=== PATIENT | female | born 1990 | race Caucasian/White ===

== ENCOUNTER → 2020-05-18 12:56 | Outpatient (BNVA) | payer OTHER, SELFPAY | PROVIDERS: PCP Internal Medicine; Visit Provider Advanced Practice Midwife | DX: Z34.01 Encounter for supervision of normal first pregnancy, first trimester (principal); Z3A.08 8 weeks gestation of pregnancy | CPT/HCPCS: 99211 ==

== ENCOUNTER 2020-05-20 11:10 | Outpatient (REF) | payer OTHER, SELFPAY | END 2020-05-20 11:11 | disposition home or self-care (01) | LOC: HO.LAB 11:10 | PROVIDERS: Visit Provider Obstetrics & Gynecology | DX: R82.90 Unspecified abnormal findings in urine (principal) | CPT/HCPCS: 99212 ==

== ENCOUNTER → 2020-06-03 14:19 | Outpatient (BNVA) | payer OTHER, SELFPAY | DX: Z76.89 Persons encountering health services in other specified circumstances (principal) ==

== ENCOUNTER 2020-06-10 13:24 | Outpatient (REF) | payer OTHER, SELFPAY ==
[2020-06-10 14:12] LABS: MANUAL DIFF FLAG NO
[2020-06-10 14:24] LABS: Basophils Percent Auto 0.4 % (0-2); Eosinophils Absolute Auto 0.1 X10*3/uL (0.0-0.4); Eosinophils Percent Auto 0.9 % (0-4); Hematocrit 30.8 % (37-47); Hemoglobin 10.4 g/dl (12.0-16.0); Imm Gran Abs Auto 0.03 X10*3/uL (0.00-0.03); Imm Gran Pct Auto 0.4 % (0.0-0.4); Lymphocytes Absolute Auto 1.3 X10*3/uL (1.2-4.9); Lymphocytes Percent Auto 16.7 % (20-40); Mean Corpuscular HGB Conc 33.8 g/dl (31.0-35.0); Mean Corpuscular Hemoglobin 30.3 pg (27.0-33.0); Mean Corpuscular Volume 89.8 fL (80-98); Mean Platelet Volume 10.3 fL (9.4-12.3); Monocytes Absolute Auto 0.4 X10*3/uL (0.1-1.2); Monocytes Percent Auto 4.5 % (2-11); Neutrophils Absolute Auto 6.2 X10*3/uL (2.0-8.3); Neutrophils Percent Auto 77.1 % (45-73); Platelet Count 232 X10*3/uL (160-400); Red Blood Count 3.43 X10*6/uL (4.20-5.50); Red Cell Distribution Width 11.9 % (11.0-16.0)
[2020-06-10 15:15] LABS: Syphilis Screen Nonreactive (Nonreactive)
[2020-06-10 15:34] LABS: Amphetamine Screen Urine Not Detected (Not Detect); Barbiturates, Urine Not Detected (Not Detect); Benzodiazepines Screen Urine Not Detected (Not Detect); Cannabinoid Screen Urine Not Detected (Not Detect); Cocaine Screen Urine Not Detected (Not Detect); Opiate Screen Urine Not Detected (Not Detect); Phencyclidine Screen Urine Not Detected (Not Detect)
[2020-06-11 05:07] LABS: HIV AB/AG Nonreactive (Nonreactive); HIV Num 1 0.09 S/CO (0.00-0.99); ~Hepatitis C Antibody Nonreactive (Nonreactive)
[2020-06-11 05:11] LABS: HBsAGNum1 0.17 S/CO (0.00-0.99); Hepatitis B Surface Antigen Negative (Negative)
[2020-06-11 08:56] LABS: Rubella IgG Antibody 1.29 index
[2020-06-12 09:56] LABS: Toxoplasma IgG Antibody <7.20 IU/mL; Toxoplasma IgM Antibody <8.00 AU/mL
== END 2020-06-10 13:25 | disposition home or self-care (01) ==
LOC: HO.LAB 13:24
PROVIDERS: Visit Provider Advanced Practice Midwife
DX: Z34.90 Encounter for supervision of normal pregnancy, unspecified, unspecified trimester (principal); Z3A.00 Weeks of gestation of pregnancy not specified
CPT/HCPCS: 36415; 80307; 84702; 85025; 86762; 86777; 86778; 86780; 86787; 86803; 86850; 86886; 86900; 86901; 87086; 87088; 87186; 87340; 87389

== ENCOUNTER 2020-06-12 10:32 | Outpatient (REF) | payer OTHER, SELFPAY ==
--- NOTE | 2020-06-12 | US_ITS ---
EXAMINATION: OBSTETRICAL ULTRASOUND, First Trimester Twins HISTORY: 29-year-old at 12.0 weeks of gestation Size date discrepancy NT screening COMPARISON: None in this TECHNIQUE: Real time transabdominal imaging with color and M-mode Doppler. FINDINGS: Living dichorionic/diamniotic twin gestation is noted. Twin A: Presenting A viable fetus with CRL of 45 mm c/w 11.3wks is noted. Heart Rate: 153 beats per minute. Normal yolk sac seen. NT was 0.9.mm. NB Present The embryo appears sonographically wnl for this GA. Twin B: None presenting A viable fetus with CRL of 49 mm c/w 11.5wks is noted. Heart Rate: 160 beats per minute. Normal yolk sac seen. NT was 1.0.mm. NB Present The embryo appears sonographically wnl for this GA. Right ovary was not visible. There is a clear cyst in the left ovary 5.3 x 3.3 x 3.6 cm GESTATIONAL AGE: 1. Established GA: 12.0 wks 2. GA from [facility]: 11.3 wks ESTIMATED DATE OF DELIVERY: 1. Established BIB: 12/25/2020 2. BIB from [facility]: 12/27/2020 US/US OB 1T nuc measure add IMPRESSION: 1. Living dichorionic diamniotic twins. Two separate placentas and thick membranes the twins are noted. 2. Both embryos measure appropriate for GA 3. Normal nuchal translucency 4. Benign left ovarian cyst MFM Consultation: I reviewed the ultrasound findings along with significance of NT measurement. The NT of less than 3mm is generally reassuring. However, the sensitivity for T21 detection is only 60%. I reviewed the availability of serum aneuploidy screening which includes cell-free DNA and placental protein based tests. I discussed the sensitivity, false-positive rate, and other limitations associated with each test. I also reviewed the availability of invasive diagnostic tests that are associated small but definite risk of miscarriage. We also reviewed the differences between screening tests and diagnostic tests. After our discussion, she opted for the First trimester screening that is based on cell-free DNA or non-invasive testing (NIPT). I informed her of the limitations N IPT in multiple gestations. We discussed various obstetrical complications associated with twin gestation. These include increased risk of delivery, preeclampsia, gestational diabetes, and IUGR. She will be monitored with monthly ultrasound evaluation beginning at 18 weeks until approximately 34 weeks. After that, weekly testing is recommended until delivery. I informed her that the baseline incidence of congenital abnormalities and mental retardation in the general population is approximately 3-5%. Not all these conditions are diagnosable in utero. Follow up at 18 weeks for survey has been scheduled. Thank you very much for this referral. Majority of this visit was spent reviewing her care and counselling her in face to face time: Time spent 30 min.
== END 2020-06-12 10:33 | disposition home or self-care (01) ==
LOC: HO.US 10:32
PROVIDERS: Visit Provider Advanced Practice Midwife
DX: Z34.90 Encounter for supervision of normal pregnancy, unspecified, unspecified trimester (principal); Z36.82 Encounter for antenatal screening for nuchal translucency
CPT/HCPCS: 76813; 76814

== ENCOUNTER 2020-06-15 14:58 | Outpatient (REF) | payer OTHER, SELFPAY ==
[2020-06-16 15:04] LABS: CT PCR NOT DETECTED (Not Detect.)
[2020-06-16 15:05] LABS: NG PCR NOT DETECTED (Not Detect.)
[2020-06-17 09:43] LABS: BV Int Neg Control Negative (Negative); BV Int Pos Control Positive (Positive)
[2020-06-20 03:11] LABS: HPV mRNA E6/E7 rflx Not Detected (Not Detected)
== END 2020-06-15 14:59 | disposition home or self-care (01) ==
LOC: HO.LAB 14:58
PROVIDERS: Obstetrics & Gynecology; Visit Provider Advanced Practice Midwife
DX: O30.009 Twin pregnancy, unspecified number of placenta and unspecified number of amniotic sacs, unspecified trimester (principal); O30.041 Twin pregnancy, dichorionic/diamniotic, first trimester; O99.019 Anemia complicating pregnancy, unspecified trimester
CPT/HCPCS: 87480; 87491; 87510; 87591; 87624; 87625; 87660; 88142

== ENCOUNTER → 2020-07-13 14:26 | Outpatient (BNVA) | payer OTHER, SELFPAY | PROVIDERS: Visit Provider Obstetrics & Gynecology | DX: O30.042 Twin pregnancy, dichorionic/diamniotic, second trimester (principal); O23.42 Unspecified infection of urinary tract in pregnancy, second trimester; Z3A.16 16 weeks gestation of pregnancy | CPT/HCPCS: 99212 ==

== ENCOUNTER 2020-08-14 15:27 | Outpatient (REF) | payer OTHER, SELFPAY ==
--- NOTE | 2020-08-14 | US_ITS ---
EXAMINATION: OBSTETRICAL ULTRASOUND - SECOND TRIMESTER, TWINS HISTORY: 29-year-old at the 21.0 weeks of gestation Dichorionic diamniotic twins Suspected anomaly COMPARISON: 06/12/2020 TECHNIQUE: Real time transabdominal imaging with color and M-mode Doppler. TWIN A: PRESENTATION: Vertex PLACENTA LOCATION: Posterior without previa AMNIOTIC FLUID: Normal Thick membranes the twins are noted consistent with him dichorionic diamniotic placentation. MEASUREMENTS: 1. Biparietal Diameter: 5.1 cm; 21.4 wks 2. Occipital Frontal Diameter: 6.4 cm 3. Head Circumference: 18.2 cm; 20.4 wks 4. Abdominal Circumference: 15.8 cm; 21.0 wks 5. Femur Length: 3.21 cm; 20.0 wks 6. Humerus Length: 2.8 cm; 19.1 wks 7. Tibia Length: 2.8 cm; 20.1 wks 8. Lateral ventricle: 0.73 cm 9. Cerebellum: 2.12 cm; 21.3 wks 10. Cisterna Magna: 0.41 cm 11. Nuchal Fold: 4.9 mm 12. Heart Rate: 143 beats per minute GESTATIONAL AGE: Established GA: 21.0 wks GA from [facility]: 20.6 wks WEIGHT: EFW: 362 grams (0 lbs 13 oz).-- 24 %. ANATOMY: 1. Cranium: Normal 2. BPD Level: Normal 3. Cerebral ventricles: Normal 4. face: Suboptimal due to position 5. Cardiac anatomy: Limited due to position 6. Heart chambers: Suboptimal 7. Diaphragm: Normal 8. Abdominal wall: Normal 9. Spine: Normal 10. Stomach: Normal 11. 3 vessel cord: Normal 12. Upper extremity: Suboptimal 13. Lower extremity: Normal 14. Right Kidney: Normal 15. Left Kidney: Normal 16. Bladder: Normal 17. Genitalia: Female, patient aware TWIN B: PRESENTATION: Transverse, nonpresenting PLACENTA LOCATION: Anterior without previa AMNIOTIC FLUID: Normal MEASUREMENTS: 1. Biparietal Diameter: 4.9 cm; 20.6 wks 2. Occipital Frontal Diameter: 6.5 cm 3. Head Circumference: 18.3 cm; 20 point wks 4. Abdominal Circumference: 16.7 cm; 21.6 wks 5. Femur Length: 3.3 cm; 20.2 wks 6. Humerus Length: 3.1 cm; 20.2 wks 7. Tibia Length: 2.81 cm; 20.2 wks 8. Ulna Length: 2.95 cm; 21.0 wks 9. Lateral ventricle: 0.8 cm 10. Cerebellum: 2.15 cm; 21.4 wks 11. Cisterna Magna: 0.53 cm 12. Nuchal Fold: 3.6 mm 13. Heart Rate: 156 beats per minute GESTATIONAL AGE: Established GA: 21.0 wks GA from [facility]: 21.0 wks WEIGHT: EFW: 392 grams (0 lbs 14 oz).-- 45 %. ANATOMY: 1. Cranium: Normal 2. BPD Level: Normal 3. Cerebral ventricles: Normal 4. face: Normal 5. Cardiac anatomy: Limited cardiac anatomy due to position 6. Heart chambers: Normal 7. Diaphragm: Normal 8. Abdominal wall: Normal 9. Spine: Suboptimal due to position 10. Stomach: Normal 11. 3 vessel cord: Normal 12. Upper extremity: Limited 13. Lower extremity: Limited 14. Right Kidney: Normal 15. Left Kidney: Normal 16. Bladder: Normal 17. Genitalia: Male, patient aware ESTIMATED DATE OF DELIVERY: 1. Established BIB: 12/25/2020 2. BIB from [facility]: 12/26/2020 Cervix: 4.0 cm (T/A) US/US OB /maternal detail IMPRESSION: 1. Active, dichorionic diamniotic twins 2. Size equals dates, twins are concordant 3. anatomy was suboptimal due to the position. No abnormalities were seen in visualized anatomy as noted above. 4. Cervix 4.0 cm on transabdominal view We reviewed the findings on today's examination. Twins are appropriately grown and concordant. They both active. Twin A is female and be male. Although anatomic survey could not be completed, no abnormalities were detected. She also had the low risk serum aneuploidy screening. An amniocentesis was offered and declined. We discussed the differences between screening test and diagnostic tests. She is aware that baseline incidence of congenital abnormalities in the general population is approximately 3-5%. Not all these conditions are diagnosable in utero. I reviewed the obstetrical complications associated with twin gestation. These include increased risk of delivery, preeclampsia, gestational diabetes and IUGR. She will be monitored throughout the with growth evaluation as well as testing beginning at approximately 34 weeks of gestation. The cervical length is within normal limits on transabdominal view. She is scheduled to return in 2 weeks for follow-up examination. Thank you very much for this referral. Total time: 30 minutes (6,17,7)
--- NOTE | 2020-08-14 15:31 | US_ITS ---
EXAMINATION: OBSTETRICAL ULTRASOUND - SECOND TRIMESTER, TWINS HISTORY: 29-year-old at the 21.0 weeks of gestation Dichorionic diamniotic twins Suspected anomaly COMPARISON: 06/12/2020 TECHNIQUE: Real time transabdominal imaging with color and M-mode Doppler. TWIN A: PRESENTATION: Vertex PLACENTA LOCATION: Posterior without previa AMNIOTIC FLUID: Normal Thick membranes the twins are noted consistent with him dichorionic diamniotic placentation. MEASUREMENTS: 1. Biparietal Diameter: 5.1 cm; 21.4 wks 2. Occipital Frontal Diameter: 6.4 cm 3. Head Circumference: 18.2 cm; 20.4 wks 4. Abdominal Circumference: 15.8 cm; 21.0 wks 5. Femur Length: 3.21 cm; 20.0 wks 6. Humerus Length: 2.8 cm; 19.1 wks 7. Tibia Length: 2.8 cm; 20.1 wks 8. Lateral ventricle: 0.73 cm 9. Cerebellum: 2.12 cm; 21.3 wks 10. Cisterna Magna: 0.41 cm 11. Nuchal Fold: 4.9 mm 12. Heart Rate: 143 beats per minute GESTATIONAL AGE: Established GA: 21.0 wks GA from [facility]: 20.6 wks WEIGHT: EFW: 362 grams (0 lbs 13 oz).-- 24 %. ANATOMY: 1. Cranium: Normal 2. BPD Level: Normal 3. Cerebral ventricles: Normal 4. face: Suboptimal due to position 5. Cardiac anatomy: Limited due to position 6. Heart chambers: Suboptimal 7. Diaphragm: Normal 8. Abdominal wall: Normal 9. Spine: Normal 10. Stomach: Normal 11. 3 vessel cord: Normal 12. Upper extremity: Suboptimal 13. Lower extremity: Normal 14. Right Kidney: Normal 15. Left Kidney: Normal 16. Bladder: Normal 17. Genitalia: Female, patient aware TWIN B: PRESENTATION: Transverse, nonpresenting PLACENTA LOCATION: Anterior without previa AMNIOTIC FLUID: Normal MEASUREMENTS: 1. Biparietal Diameter: 4.9 cm; 20.6 wks 2. Occipital Frontal Diameter: 6.5 cm 3. Head Circumference: 18.3 cm; 20 point wks 4. Abdominal Circumference: 16.7 cm; 21.6 wks 5. Femur Length: 3.3 cm; 20.2 wks 6. Humerus Length: 3.1 cm; 20.2 wks 7. Tibia Length: 2.81 cm; 20.2 wks 8. Ulna Length: 2.95 cm; 21.0 wks 9. Lateral ventricle: 0.8 cm 10. Cerebellum: 2.15 cm; 21.4 wks 11. Cisterna Magna: 0.53 cm 12. Nuchal Fold: 3.6 mm 13. Heart Rate: 156 beats per minute GESTATIONAL AGE: Established GA: 21.0 wks GA from [facility]: 21.0 wks WEIGHT: EFW: 392 grams (0 lbs 14 oz).-- 45 %. ANATOMY: 1. Cranium: Normal 2. BPD Level: Normal 3. Cerebral ventricles: Normal 4. face: Normal 5. Cardiac anatomy: Limited cardiac anatomy due to position 6. Heart chambers: Normal 7. Diaphragm: Normal 8. Abdominal wall: Normal 9. Spine: Suboptimal due to position 10. Stomach: Normal 11. 3 vessel cord: Normal 12. Upper extremity: Limited 13. Lower extremity: Limited 14. Right Kidney: Normal 15. Left Kidney: Normal 16. Bladder: Normal 17. Genitalia: Male, patient aware ESTIMATED DATE OF DELIVERY: 1. Established BIB: 12/25/2020 2. [facility]: 12/26/2020 Cervix: 4.0 cm (T/A) US/ OB /maternal det add IMPRESSION: 1. Active, dichorionic diamniotic twins 2. Size equals dates, twins are concordant 3. anatomy was suboptimal due to the position. No abnormalities were seen in visualized anatomy as noted above. 4. Cervix 4.0 cm on transabdominal view We reviewed the findings on today's examination. Twins are appropriately grown and concordant. They both active. Twin A is female and be male. Although anatomic survey could not be completed, no abnormalities were detected. She also had the low risk serum aneuploidy screening. An amniocentesis was offered and declined. We discussed the differences between screening test and diagnostic tests. She is aware that baseline incidence of congenital abnormalities in the general population is approximately 3-5%. Not all these conditions are diagnosable in utero. I reviewed the obstetrical complications associated with twin gestation. These include increased risk of delivery, preeclampsia, gestational diabetes and IUGR. She will be monitored throughout the with growth evaluation as well as testing beginning at approximately 34 weeks of gestation. The cervical length is within normal limits on transabdominal view. She is scheduled to return in 2 weeks for follow-up examination. Thank you very much for this referral. Total time: 30 minutes (6,17,7)
== END 2020-08-14 15:28 | disposition home or self-care (01) ==
LOC: HO.US 15:27
PROVIDERS: Visit Provider Obstetrics & Gynecology
DX: Z36.3 Encounter for antenatal screening for malformations (principal)
CPT/HCPCS: 76811; 76812

== ENCOUNTER 2020-08-17 15:50 | Outpatient (REF) | payer OTHER, SELFPAY | END 2020-08-17 15:51 | disposition home or self-care (01) | LOC: HO.LAB 15:50 | PROVIDERS: PCP Internal Medicine; Visit Provider Advanced Practice Midwife | DX: O30.042 Twin pregnancy, dichorionic/diamniotic, second trimester (principal); Z3A.21 21 weeks gestation of pregnancy; Z79.82 Long term (current) use of aspirin | CPT/HCPCS: 81003; 99212 ==

== ENCOUNTER 2020-08-28 13:17 | Outpatient (REF) | payer SELFPAY ==
--- NOTE | ~2020-08-28 | US_ITS ---
EXAMINATION: US OBSTETRICAL (Twin Growth and BPP ) CLINICAL INFORMATION: 29-year-old at 23.0 weeks of gestation Dichorionic diamniotic twins Follow-up anatomy COMPARISON: 08/14/2020 TECHNIQUE: Real time transabdominal imaging with color and M-mode Doppler. TWIN A: PRESENTATION: Breech, presenting, female PLACENTA LOCATION: Posterior without previa AMNIOTIC FLUID: Normal biometry was not repeated as there were 2 weeks ago. ANATOMY: Following views are within normal limits: LVOT, RVOT, ductal and aortic arches, three-vessel view, situs, diaphragm, right hand, left hand, fifth digit, bilateral lower extremities. TWIN B: PRESENTATION: Transverse, fundal, male PLACENTA LOCATION: Anterior, without previa AMNIOTIC FLUID: Normal Biometry done 2 weeks ago was not repeated ANATOMY: Isolated EIF noted in left ventricle. Following views are within normal limits: LVOT, aortic arch, three-vessel, trachea view, situs, spine, right and left hands, fifth digit, bilateral legs. GESTATIONAL AGE: 1. Established GA: 23.0 wks 2. GA from [facility]: N/A wks ESTIMATED DATE OF DELIVERY: 1. Established BIB: 12/25/2020 2. BIB from [facility]: N/A US/ OB f/u add gest IMPRESSION: 1. DICHORIONIC DIAMNIOTIC twins. 2. Normal AFV x 2 3. Isolated EIF in Twin B. Otherwise, no abnormalities were noted in both twins. In combination with earlier exam, today's exam completes survey. MFM Discussion: I reviewed the weak association between echogenic intracardiac focus and Down syndrome. The likelihood ratio is approximately 2. Other than its association with Down syndrome, the clinical significance is unknown. She had the low risk N IPT. In this setting, isolated EIF is considered to be a normal variant. I reviewed the risks and benefits of amniocentesis as well as the availability of micron right analysis on amnio sites. The procedure associated the miscarriage rate is estimated to be 1 and 500. After our discussion, she declined amniocentesis. A follow-up has been scheduled in 2 weeks. Thank you very much for this referral. Majority of the visit was spent reviewing her care. Face to face time: 30 min
[2020-08-28 16:34] LABS: Glucose 1 Hour PP 50gm Dose 149 mg/dL (60-140)
== END 2020-08-28 13:18 | disposition home or self-care (01) ==
LOC: HO.US 13:17
PROVIDERS: Advanced Practice Midwife; Visit Provider Obstetrics & Gynecology
DX: O30.042 Twin pregnancy, dichorionic/diamniotic, second trimester (principal); O23.42 Unspecified infection of urinary tract in pregnancy, second trimester; Z3A.23 23 weeks gestation of pregnancy
CPT/HCPCS: 36415; 76816; 87086; 87088; 87186

== ENCOUNTER → 2020-08-31 14:22 | Outpatient (BNVA) | payer SELFPAY | PROVIDERS: Visit Provider Obstetrics & Gynecology | DX: O30.042 Twin pregnancy, dichorionic/diamniotic, second trimester (principal); N39.0 Urinary tract infection, site not specified | CPT/HCPCS: 99212 ==

== ENCOUNTER 2020-09-11 13:59 | Outpatient (REF) | payer SELFPAY ==
--- NOTE | ~2020-09-11 | US_ITS ---
EXAMINATION: US OBSTETRICAL (Twin Growth and BPP ) CLINICAL INFORMATION: 29-year-old at the 25.0 weeks of gestation Dichorionic diamniotic twins Size date discrepancy COMPARISON: 08/28/2020 TECHNIQUE: Real time transabdominal imaging with color and M-mode Doppler. Transvaginal ultrasound was performed using an endovaginal probe. TWIN A: Female PRESENTATION: Vertex PLACENTA LOCATION: Posterior without previa AMNIOTIC FLUID: Within normal limits MEASUREMENTS: 1. Biparietal Diameter: 6.1 cm; 24.5 wks 2. Head Circumference: 22.5 cm; 24.4 wks 3. Abdominal Circumference: 20.3 cm; 25.0 wks 4. Femur Length: 4.42 cm; 24.4 wks 5. Heart Rate: 144 beats per minute WEIGHT: EFW: 727 grams (1 lbs 10 oz)--28 %. ANATOMY: Lateral ventricles, posterior fossa, four-chamber view of the heart, stomach, kidneys and bladder are within normal limits. GESTATIONAL AGE: 1. Established GA: 25.0 wks 2. GA from [facility]: 24.5 wks TWIN B: Male PRESENTATION: Breech, left PLACENTA LOCATION: Anterior without previa AMNIOTIC FLUID: Normal MEASUREMENTS: 1. Biparietal Diameter: 5.8 cm; 23.5 wks 2. Head Circumference: 22.3 cm; 24.3 wks 3. Abdominal Circumference: 21.4 cm; 26.0 wks 4. Femur Length: 4.1 cm; 23.2 wks 5. Heart Rate: 144 beats per minute WEIGHT: EFW: 725 grams (1 lbs 10 oz)--28 %. ANATOMY: Cerebral lateral ventricle, posterior fossa, four-chamber view of the heart, stomach, urinary bladder and kidneys are within normal limits GESTATIONAL AGE: 1. Established GA: 25.0 wks 2. GA from [facility]: 24.3 wks ESTIMATED DATE OF DELIVERY: 1. Established BIB: 12/25/2020 2. BIB from [facility]: 12/29/2020 CERVIX: 4.6 cm on transvaginal ultrasound US/US OB transvaginal IMPRESSION: 1. Appropriately grown, concordant, DICHORIONIC DIAMNIOTIC twins. 2. Normal AFV x 2 3. Normal cervical length I gave her reassurance. Twins are concordant and have normal amount of amniotic fluid. Her cervical length is within normal limits. She is to have the one hour glucose tolerance test next week. Follow up has been scheduled in 4 weeks. Thank you very much for this referral. Majority of the visit was spent reviewing her care. Face to face time: 20 min
--- NOTE | ~2020-09-11 | US_ITS ---
EXAMINATION: US OBSTETRICAL (Twin Growth and BPP ) CLINICAL INFORMATION: 29-year-old at the 25.0 weeks of gestation Dichorionic diamniotic twins Size date discrepancy COMPARISON: 08/28/2020 TECHNIQUE: Real time transabdominal imaging with color and M-mode Doppler. Transvaginal ultrasound was performed using an endovaginal probe. TWIN A: Female PRESENTATION: Vertex PLACENTA LOCATION: Posterior without previa AMNIOTIC FLUID: Within normal limits MEASUREMENTS: 1. Biparietal Diameter: 6.1 cm; 24.5 wks 2. Head Circumference: 22.5 cm; 24.4 wks 3. Abdominal Circumference: 20.3 cm; 25.0 wks 4. Femur Length: 4.42 cm; 24.4 wks 5. Heart Rate: 144 beats per minute WEIGHT: EFW: 727 grams (1 lbs 10 oz)--28 %. ANATOMY: Lateral ventricles, posterior fossa, four-chamber view of the heart, stomach, kidneys and bladder are within normal limits. GESTATIONAL AGE: 1. Established GA: 25.0 wks 2. GA from [facility]: 24.5 wks TWIN B: Male PRESENTATION: Breech, left PLACENTA LOCATION: Anterior without previa AMNIOTIC FLUID: Normal MEASUREMENTS: 1. Biparietal Diameter: 5.8 cm; 23.5 wks 2. Head Circumference: 22.3 cm; 24.3 wks 3. Abdominal Circumference: 21.4 cm; 26.0 wks 4. Femur Length: 4.1 cm; 23.2 wks 5. Heart Rate: 144 beats per minute WEIGHT: EFW: 725 grams (1 lbs 10 oz)--28 %. ANATOMY: Cerebral lateral ventricle, posterior fossa, four-chamber view of the heart, stomach, urinary bladder and kidneys are within normal limits GESTATIONAL AGE: 1. Established GA: 25.0 wks 2. GA from [facility]: 24.3 wks ESTIMATED DATE OF DELIVERY: 1. Established BIB: 12/25/2020 2. BIB from [facility]: 12/29/2020 CERVIX: 4.6 cm on transvaginal ultrasound US/US OB follow up IMPRESSION: 1. Appropriately grown, concordant, DICHORIONIC DIAMNIOTIC twins. 2. Normal AFV x 2 3. Normal cervical length I gave her reassurance. Twins are concordant and have normal amount of amniotic fluid. Her cervical length is within normal limits. She is to have the one hour glucose tolerance test next week. Follow up has been scheduled in 4 weeks. Thank you very much for this referral. Majority of the visit was spent reviewing her care. Face to face time: 20 min
--- NOTE | ~2020-09-11 | US_ITS ---
EXAMINATION: US OBSTETRICAL (Twin Growth and BPP ) CLINICAL INFORMATION: 29-year-old at the 25.0 weeks of gestation Dichorionic diamniotic twins Size date discrepancy COMPARISON: 08/28/2020 TECHNIQUE: Real time transabdominal imaging with color and M-mode Doppler. Transvaginal ultrasound was performed using an endovaginal probe. TWIN A: Female PRESENTATION: Vertex PLACENTA LOCATION: Posterior without previa AMNIOTIC FLUID: Within normal limits MEASUREMENTS: 1. Biparietal Diameter: 6.1 cm; 24.5 wks 2. Head Circumference: 22.5 cm; 24.4 wks 3. Abdominal Circumference: 20.3 cm; 25.0 wks 4. Femur Length: 4.42 cm; 24.4 wks 5. Heart Rate: 144 beats per minute WEIGHT: EFW: 727 grams (1 lbs 10 oz)--28 %. ANATOMY: Lateral ventricles, posterior fossa, four-chamber view of the heart, stomach, kidneys and bladder are within normal limits. GESTATIONAL AGE: 1. Established GA: 25.0 wks 2. GA from A: 24.5 wks TWIN B: Male PRESENTATION: Breech, left PLACENTA LOCATION: Anterior without previa AMNIOTIC FLUID: Normal MEASUREMENTS: 1. Biparietal Diameter: 5.8 cm; 23.5 wks 2. Head Circumference: 22.3 cm; 24.3 wks 3. Abdominal Circumference: 21.4 cm; 26.0 wks 4. Femur Length: 4.1 cm; 23.2 wks 5. Heart Rate: 144 beats per minute WEIGHT: EFW: 725 grams (1 lbs 10 oz)--28 %. ANATOMY: Cerebral lateral ventricle, posterior fossa, four-chamber view of the heart, stomach, urinary bladder and kidneys are within normal limits GESTATIONAL AGE: 1. Established GA: 25.0 wks 2. GA from [facility]: 24.3 wks ESTIMATED DATE OF DELIVERY: 1. Established BIB: 12/25/2020 2. BIB from [facility]: 12/29/2020 CERVIX: 4.6 cm on transvaginal ultrasound US/US OB f/u add gest IMPRESSION: 1. Appropriately grown, concordant, DICHORIONIC DIAMNIOTIC twins. 2. Normal AFV x 2 3. Normal cervical length I gave her reassurance. Twins are concordant and have normal amount of amniotic fluid. Her cervical length is within normal limits. She is to have the one hour glucose tolerance test next week. Follow up has been scheduled in 4 weeks. Thank you very much for this referral. Majority of the visit was spent reviewing her care. Face to face time: 20 min
== END 2020-09-11 14:00 | disposition home or self-care (01) ==
LOC: HO.US 13:59
PROVIDERS: Visit Provider Obstetrics & Gynecology
DX: O30.042 Twin pregnancy, dichorionic/diamniotic, second trimester (principal); O26.842 Uterine size-date discrepancy, second trimester; Z3A.25 25 weeks gestation of pregnancy
CPT/HCPCS: 76816; 76817

== ENCOUNTER → 2020-09-22 11:17 | Outpatient (BNVA) | payer SELFPAY | PROVIDERS: PCP Internal Medicine; Visit Provider Obstetrics & Gynecology | DX: O30.043 Twin pregnancy, dichorionic/diamniotic, third trimester (principal) | CPT/HCPCS: 99212 ==

== ENCOUNTER 2020-09-24 08:02 | Outpatient (REF) | payer SELFPAY ==
[2020-09-24 09:23] LABS: MANUAL DIFF FLAG NO
[2020-09-24 09:31] LABS: Basophils Absolute Auto 0.1 X10*3/uL (0.0-0.2); Basophils Percent Auto 0.6 % (0-2); Eosinophils Absolute Auto 0.2 X10*3/uL (0.0-0.4); Hematocrit 28.2 % (37-47); Imm Gran Abs Auto 0.06 X10*3/uL (0.00-0.03); Imm Gran Pct Auto 0.7 % (0.0-0.4); Lymphocytes Absolute Auto 1.2 X10*3/uL (1.2-4.9); Lymphocytes Percent Auto 15.3 % (20-40); Mean Corpuscular HGB Conc 31.9 g/dl (31.0-35.0); Mean Corpuscular Hemoglobin 29.6 pg (27.0-33.0); Mean Corpuscular Volume 92.8 fL (80-98); Mean Platelet Volume 10.7 fL (9.4-12.3); Monocytes Absolute Auto 0.4 X10*3/uL (0.1-1.2); Monocytes Percent Auto 5.4 % (2-11); Neutrophils Absolute Auto 6.2 X10*3/uL (2.0-8.3); Platelet Count 252 X10*3/uL (160-400); Red Blood Count 3.04 X10*6/uL (4.20-5.50); White Blood Count 8.1 X10*3/uL (4.8-10.8)
[2020-09-24 10:17] LABS: Glucose Fasting 74 mg/dL (60-99)
[2020-09-24 10:20] LABS: Glucose 1 Hour 121 mg/dL
[2020-09-24 11:35] LABS: Glucose 2 Hour 108 mg/dL
[2020-09-24 12:14] LABS: Glucose 3 Hour 112 mg/dL
[2020-09-25 08:08] LABS: Syphilis Screen Nonreactive (Nonreactive)
== END 2020-09-24 08:03 | disposition home or self-care (01) ==
LOC: HO.LAB 08:02
PROVIDERS: PCP Internal Medicine; Visit Provider Obstetrics & Gynecology
DX: Z34.83 Encounter for supervision of other normal pregnancy, third trimester (principal); Z11.3 Encounter for screening for infections with a predominantly sexual mode of transmission
CPT/HCPCS: 36415; 82951; 85025; 86780

== ENCOUNTER → 2020-10-07 14:15 | Outpatient (BNVA) | payer SELFPAY | PROVIDERS: Visit Provider Obstetrics & Gynecology | DX: O30.043 Twin pregnancy, dichorionic/diamniotic, third trimester (principal); Z3A.28 28 weeks gestation of pregnancy | CPT/HCPCS: 99212 ==

== ENCOUNTER 2020-10-09 08:55 | Outpatient (REF) | payer MEDICAID, SELFPAY ==
--- NOTE | ~2020-10-09 | US_ITS ---
EXAMINATION: US OBSTETRICAL (Twin Growth and BPP ) CLINICAL INFORMATION: 30-year-old at the 29.0 weeks of gestation Dichorionic diamniotic twins Size date discrepancy Cervical length evaluation COMPARISON: 09/11/2020 TECHNIQUE: Real time transabdominal imaging with color and M-mode Doppler. Transvaginal ultrasound was performed using an endovaginal probe. TWIN A: PRESENTATION: Breech, maternal left, female PLACENTA LOCATION: Posterior without previa AMNIOTIC FLUID: Normal MEASUREMENTS: 1. Biparietal Diameter: 7.3 cm; 29.3 wks 2. Head Circumference: 26.8 cm; 29.2 wks 3. Abdominal Circumference: 24.2 cm; 28.4 wks 4. Femur Length: 5.0 cm; 26.6 wks 5. Heart Rate: 140 beats per minute WEIGHT: EFW: 1168 grams (2 lbs 9 oz)--12 %. ANATOMY: Following views were within normal limits: Posterior fossa, lateral ventricles, four-chamber view of the heart, stomach, kidneys, bladder GESTATIONAL AGE: 1. Established GA: 29.0 wks 2. GA from [facility]: 28.3 wks BIOPHYSICAL PROFILE: Motion: 2 Tone: 2 Breathin Amniotic Fluid: 2 The total biophysical score is 8/8 TWIN B: PRESENTATION: Vertex, Right, male PLACENTA LOCATION: Anterior AMNIOTIC FLUID: Normal MEASUREMENTS: 1. Biparietal Diameter: 6.8 cm; 27.4 wks 2. Head Circumference: 27.23 cm; 29.6 wks 3. Abdominal Circumference: 24.6 cm; 29.0 wks 4. Femur Length: 5.0 cm; 20 7. wks 5. Heart Rate: 133 beats per minute WEIGHT: EFW: 1189 grams (2 lbs 10 oz)--14 %. ANATOMY: Following views were within normal limits: Posterior fossa, lateral ventricles, four-chamber view of the heart, stomach, kidneys and urinary bladder. GESTATIONAL AGE: 1. Established GA: 29.0 wks 2. GA from [facility]: 28.3 wks ESTIMATED DATE OF DELIVERY: 1. Established BIB: 12/25/2020 2. BIB from [facility]: 12/29/2020 BIOPHYSICAL PROFILE: Motion: 2 Tone: 2 Breathin Amniotic Fluid: 2 The total biophysical score is 8/8 CERVIX: 4.5 cm US/US OB f/u add gest IMPRESSION: 1. DICHORIONIC, DIAMNIOTIC twins. 2. The interval growth for both twins has been slightly less than expected. However there concordant. 3. Both twins have normal BPP scores and normal and equal amount of amniotic fluid. 4. Normal cervical length I reviewed today's ultrasound findings and gave her reassurance. The twins are concordant. Although there has been slightly less than expected interval growth, they both gained adequate amount of wt. There is no evidence of the placental insufficiency. I informed her that the twins starts to slow down the rate of growth compared to singletons starting at approximately 32 wks. The cervical length is within normal limits. Patient denies symptoms or signs of labor. Follow up in 3-4 weeks (scheduled). Thank you very much for this referral. Total time 30 minutes. The time spent was devoted to counseling the patient about the disease and diagnosis, coordinating care including reviewing her records, pertinent lab data and studies, as well as discussing diagnostic evaluation and workup, plan therapeutic interventions and future disposition of care. This includes any additional research needed to obtain further information in formulating the plan of care of this patient. This note was generated with a voice recognition program. Please excuse any errors which may have been overlooked during my review of this note. Sometimes these errors may affect the content or meaning of a given sentence.
--- NOTE | ~2020-10-09 | US_ITS ---
EXAMINATION: US OBSTETRICAL (Twin Growth and BPP ) CLINICAL INFORMATION: 30-year-old at the 29.0 weeks of gestation Dichorionic diamniotic twins Size date discrepancy Cervical length evaluation COMPARISON: 09/11/2020 TECHNIQUE: Real time transabdominal imaging with color and M-mode Doppler. Transvaginal ultrasound was performed using an endovaginal probe. TWIN A: PRESENTATION: Breech, maternal left, female PLACENTA LOCATION: Posterior without previa AMNIOTIC FLUID: Normal MEASUREMENTS: 1. Biparietal Diameter: 7.3 cm; 29.3 wks 2. Head Circumference: 26.8 cm; 29.2 wks 3. Abdominal Circumference: 24.2 cm; 28.4 wks 4. Femur Length: 5.0 cm; 26.6 wks 5. Heart Rate: 140 beats per minute WEIGHT: EFW: 1168 grams (2 lbs 9 oz)--12 %. ANATOMY: Following views were within normal limits: Posterior fossa, lateral ventricles, four-chamber view of the heart, stomach, kidneys, bladder GESTATIONAL AGE: 1. Established GA: 29.0 wks 2. GA from AUA: 28.3 wks BIOPHYSICAL PROFILE: Motion: 2 Tone: 2 Breathin Amniotic Fluid: 2 The total biophysical score is 8/8 TWIN B: PRESENTATION: Vertex, Right, male PLACENTA LOCATION: Anterior AMNIOTIC FLUID: Normal MEASUREMENTS: 1. Biparietal Diameter: 6.8 cm; 27.4 wks 2. Head Circumference: 27.23 cm; 29.6 wks 3. Abdominal Circumference: 24.6 cm; 29.0 wks 4. Femur Length: 5.0 cm; 20 7. wks 5. Heart Rate: 133 beats per minute WEIGHT: EFW: 1189 grams (2 lbs 10 oz)--14 %. ANATOMY: Following views were within normal limits: Posterior fossa, lateral ventricles, four-chamber view of the heart, stomach, kidneys and urinary bladder. GESTATIONAL AGE: 1. Established GA: 29.0 wks 2. GA from AUA: 28.3 wks ESTIMATED DATE OF DELIVERY: 1. Established BIB: 12/25/2020 2. BIB from [facility]: 12/29/2020 BIOPHYSICAL PROFILE: Motion: 2 Tone: 2 Breathin Amniotic Fluid: 2 The total biophysical score is 8/8 CERVIX: 4.5 cm US/US OB follow up IMPRESSION: 1. DICHORIONIC, DIAMNIOTIC twins. 2. The interval growth for both twins has been slightly less than expected. However there concordant. 3. Both twins have normal BPP scores and normal and equal amount of amniotic fluid. 4. Normal cervical length I reviewed today's ultrasound findings and gave her reassurance. The twins are concordant. Although there has been slightly less than expected interval growth, they both gained adequate amount of wt. There is no evidence of the placental insufficiency. I informed her that the twins starts to slow down the rate of growth compared to singletons starting at approximately 32 wks. The cervical length is within normal limits. Patient denies symptoms or signs of labor. Follow up in 3-4 weeks (scheduled). Thank you very much for this referral. Total time 30 minutes. The time spent was devoted to counseling the patient about the disease and diagnosis, coordinating care including reviewing her records, pertinent lab data and studies, as well as discussing diagnostic evaluation and workup, plan therapeutic interventions and future disposition of care. This includes any additional research needed to obtain further information in formulating the plan of care of this patient. This note was generated with a voice recognition program. Please excuse any errors which may have been overlooked during my review of this note. Sometimes these errors may affect the content or meaning of a given sentence.
--- NOTE | ~2020-10-09 | US_ITS ---
EXAMINATION: US OBSTETRICAL (Twin Growth and BPP ) CLINICAL INFORMATION: 30-year-old at the 29.0 weeks of gestation Dichorionic diamniotic twins Size date discrepancy Cervical length evaluation COMPARISON: 09/11/2020 TECHNIQUE: Real time transabdominal imaging with color and M-mode Doppler. Transvaginal ultrasound was performed using an endovaginal probe. TWIN A: PRESENTATION: Breech, maternal left, female PLACENTA LOCATION: Posterior without previa AMNIOTIC FLUID: Normal MEASUREMENTS: 1. Biparietal Diameter: 7.3 cm; 29.3 wks 2. Head Circumference: 26.8 cm; 29.2 wks 3. Abdominal Circumference: 24.2 cm; 28.4 wks 4. Femur Length: 5.0 cm; 26.6 wks 5. Heart Rate: 140 beats per minute WEIGHT: EFW: 1168 grams (2 lbs 9 oz)--12 %. ANATOMY: Following views were within normal limits: Posterior fossa, lateral ventricles, four-chamber view of the heart, stomach, kidneys, bladder GESTATIONAL AGE: 1. Established GA: 29.0 wks 2. GA from AUA: 28.3 wks BIOPHYSICAL PROFILE: Motion: 2 Tone: 2 Breathin Amniotic Fluid: 2 The total biophysical score is 8/8 TWIN B: PRESENTATION: Vertex, Right, male PLACENTA LOCATION: Anterior AMNIOTIC FLUID: Normal MEASUREMENTS: 1. Biparietal Diameter: 6.8 cm; 27.4 wks 2. Head Circumference: 27.23 cm; 29.6 wks 3. Abdominal Circumference: 24.6 cm; 29.0 wks 4. Femur Length: 5.0 cm; 20 7. wks 5. Heart Rate: 133 beats per minute WEIGHT: EFW: 1189 grams (2 lbs 10 oz)--14 %. ANATOMY: Following views were within normal limits: Posterior fossa, lateral ventricles, four-chamber view of the heart, stomach, kidneys and urinary bladder. GESTATIONAL AGE: 1. Established GA: 29.0 wks 2. GA from AUA: 28.3 wks ESTIMATED DATE OF DELIVERY: 1. Established BIB: 12/25/2020 2. [facility] BIOPHYSICAL PROFILE: Motion: 2 Tone: 2 Breathin Amniotic Fluid: 2 The total biophysical score is 8/8 CERVIX: 4.5 cm US/US OB transvaginal IMPRESSION: 1. DICHORIONIC, DIAMNIOTIC twins. 2. The interval growth for both twins has been slightly less than expected. However there concordant. 3. Both twins have normal BPP scores and normal and equal amount of amniotic fluid. 4. Normal cervical length I reviewed today's ultrasound findings and gave her reassurance. The twins are concordant. Although there has been slightly less than expected interval growth, they both gained adequate amount of wt. There is no evidence of the placental insufficiency. I informed her that the twins starts to slow down the rate of growth compared to singletons starting at approximately 32 wks. The cervical length is within normal limits. Patient denies symptoms or signs of labor. Follow up in 3-4 weeks (scheduled). Thank you very much for this referral. Total time 30 minutes. The time spent was devoted to counseling the patient about the disease and diagnosis, coordinating care including reviewing her records, pertinent lab data and studies, as well as discussing diagnostic evaluation and workup, plan therapeutic interventions and future disposition of care. This includes any additional research needed to obtain further information in formulating the plan of care of this patient. This note was generated with a voice recognition program. Please excuse any errors which may have been overlooked during my review of this note. Sometimes these errors may affect the content or meaning of a given sentence.
== END 2020-10-09 08:56 | disposition home or self-care (01) ==
LOC: HO.US 08:55
PROVIDERS: Visit Provider Obstetrics & Gynecology
DX: O30.043 Twin pregnancy, dichorionic/diamniotic, third trimester (principal); Z3A.29 29 weeks gestation of pregnancy
CPT/HCPCS: 76816; 76817

== ENCOUNTER → 2020-10-21 14:00 | Outpatient (BNVA) | payer MEDICAID, SELFPAY | PROVIDERS: Visit Provider Obstetrics & Gynecology | DX: O30.043 Twin pregnancy, dichorionic/diamniotic, third trimester (principal); Z3A.30 30 weeks gestation of pregnancy | CPT/HCPCS: 99212 ==

== ENCOUNTER 2020-10-30 14:40 | Outpatient (REF) | payer OTHER, SELFPAY ==
--- NOTE | ~2020-10-30 | US_ITS ---
EXAMINATION: US OBSTETRICAL (Twin Growth and BPP ) CLINICAL INFORMATION: 30-year-old at the 32.0 weeks of gestation Dichorionic diamniotic twins Interval growth evaluation COMPARISON: 10/10/2019 TECHNIQUE: Real time transabdominal imaging with color and M-mode Doppler. TWIN A: PRESENTATION: Cephalic, maternal right, female PLACENTA LOCATION: Posterior without previa AMNIOTIC FLUID: Normal MEASUREMENTS: 1. Biparietal Diameter: 8.1 cm; 32.3 wks 2. Head Circumference: 29.7 cm; 33.0 wks 3. Abdominal Circumference: 27.7 cm; 31.6 wks 4. Femur Length: 5.8 cm; 30.3 wks 5. Heart Rate: 134 beats per minute WEIGHT: EFW: 17.6 grams (3 lbs 15 oz)--25 %. ANATOMY: The views of the posterior fossa, lateral ventricles, four-chamber, stomach, kidneys and urinary bladder are within normal limits. GESTATIONAL AGE: 1. Established GA: 32.0 wks 2. GA from AUA: 32.0 wks BIOPHYSICAL PROFILE: Motion: 2 Tone: 2 Breathin Amniotic Fluid: 2 The total biophysical score is 8/8 TWIN B: PRESENTATION: Transverse, left PLACENTA LOCATION: Anterior, without previa AMNIOTIC FLUID: Normal MEASUREMENTS: 1. Biparietal Diameter: 7.5 cm; 30.0 wks 2. Head Circumference: 29.9 cm; 33.1 wks 3. Abdominal Circumference: 29.0 cm; 33.1 wks 4. Femur Length: 5. cm; 30.2 wks 5. Heart Rate: 150 beats per minute WEIGHT: EFW: 1834 grams (4 lbs 1 oz)--32 %. ANATOMY: The views of the posterior fossa, lateral ventricles, four-chamber, stomach, kidneys, bladder are within normal limits GESTATIONAL AGE: 1. Established GA: 32.0 wks 2. GA from AUA: 31.5 wks ESTIMATED DATE OF DELIVERY: 1. Established BIB: 12/25/2020 2. BIB from [facility]: 12/27/2020 BIOPHYSICAL PROFILE: Motion: 2 Tone: 2 Breathin Amniotic Fluid: 2 The total biophysical score is 8/8 US/US OB f/u add gest IMPRESSION: 1. Appropriately grown, concordant, DICHORIONIC DIAMNIOTIC twins. 2. Normal AFV x 2 3. Reassuring biophysical profile I reviewed today's ultrasound findings and discussed the limitations of ultrasound and estimating weights. Reassurance given. She denies symptoms or signs of labor. She reportedly had the normal 1 hour GLT. Follow up in 2 weeks. Thank you very much for this referral. Total time 20 minutes. The time spent was devoted to counseling the patient about the disease and diagnosis, coordinating care including reviewing her records, pertinent lab data and studies, as well as discussing diagnostic evaluation and workup, plan therapeutic interventions and future disposition of care. This includes any additional research needed to obtain further information in formulating the plan of care of this patient. This note was generated with a voice recognition program. Please excuse any errors which may have been overlooked during my review of this note. Sometimes these errors may affect the content or meaning of a given sentence.
== END 2020-10-30 14:41 | disposition home or self-care (01) ==
LOC: HO.US 14:40
PROVIDERS: Visit Provider Obstetrics & Gynecology
DX: O30.043 Twin pregnancy, dichorionic/diamniotic, third trimester (principal)
CPT/HCPCS: 76816

== ENCOUNTER → 2020-11-04 13:36 | Outpatient (BNVA) | payer OTHER, SELFPAY | PROVIDERS: Visit Provider Obstetrics & Gynecology | DX: O30.043 Twin pregnancy, dichorionic/diamniotic, third trimester (principal); Z3A.32 32 weeks gestation of pregnancy | CPT/HCPCS: 99212 ==

== ENCOUNTER 2020-11-13 09:59 | Outpatient (REF) | payer OTHER, SELFPAY ==
--- NOTE | ~2020-11-13 | US_ITS ---
EXAMINATION: US OBSTETRICAL (BIOPHYSICAL PROFILE) CLINICAL INFORMATION: 30-year-old at the 34.0 weeks of gestation Dichorionic diamniotic twins Biophysical profile COMPARISON: 10/30/2020 TECHNIQUE: Ultrasound of the pelvis is performed. Biophysical profile is performed over 30 minutes with assessment of breathing, gross body movement, tone, and qualitative amniotic fluid volume. Each matrix is scored 0 or 2, depending if the metric is present. Maximum total score possible is 8. Examination is not intended to assess for anomalies. FINDINGS: Twin A: POSITION: Cephalic, maternal right, female AMNIOTIC FLUID VOLUME: wnl CARDIAC ACTIVITY: 140 beats per minute BIOPHYSICAL PROFILE: Motion: 2 Tone: 2 Breathin Amniotic Fluid: 2 The total biophysical score is 8/8 Twin B: POSITION: Transverse, maternal fundus, boy AMNIOTIC FLUID VOLUME: wnl CARDIAC ACTIVITY: 142 beats per minute BIOPHYSICAL PROFILE: Motion: 2 Tone: 2 Breathin Amniotic Fluid: 2 The total biophysical score is 8/8 Two placentas and thick membranes the twins are noted. This is consistent with dichorionic diamniotic twins US/US OB biophysical profile twin IMPRESSION: 1. Active dichorionic diamniotic twin gestation 2. Reassuring BPP and ABA Thank you for allowing me to participate in her care. She denies symptoms or signs of labor and reports active movements. RECOMMENDATION: 1. Weekly biophysical profile and nonstress test. 2. Repeat growth next week. Thank you for allowing me to participate in her care. Please contact me with any questions or concerns Total time 30 minutes. The time spent was devoted to counseling the patient about the disease and diagnosis, coordinating care including reviewing her records, pertinent lab data and studies, as well as discussing diagnostic evaluation and workup, plan therapeutic interventions and future disposition of care. This includes any additional research needed to obtain further information in formulating the plan of care of this patient. This note was generated with a voice recognition program. Please excuse any errors which may have been overlooked during my review of this note. Sometimes these errors may affect the content or meaning of a given sentence.
== END 2020-11-13 10:00 | disposition home or self-care (01) ==
LOC: HO.US 09:59
PROVIDERS: PCP Internal Medicine; Visit Provider Obstetrics & Gynecology
DX: O30.043 Twin pregnancy, dichorionic/diamniotic, third trimester (principal)
CPT/HCPCS: 76819

== ENCOUNTER 2020-11-18 14:23 | Outpatient (REF) | payer OTHER, SELFPAY | END 2020-11-18 14:24 | disposition home or self-care (01) | LOC: HO.LAB 14:23 | PROVIDERS: Visit Provider Obstetrics & Gynecology | DX: O30.043 Twin pregnancy, dichorionic/diamniotic, third trimester (principal); O36.8330 Maternal care for abnormalities of the fetal heart rate or rhythm, third trimester, not applicable or unspecified; Z3A.34 34 weeks gestation of pregnancy | CPT/HCPCS: 59025; 87081; 87147; 99212 ==

== ENCOUNTER 2020-11-20 14:55 | Outpatient (REF) | payer OTHER, SELFPAY ==
--- NOTE | ~2020-11-20 | US_ITS ---
EXAMINATION: US OBSTETRICAL (Twin Growth and BPP ) CLINICAL INFORMATION: 30-year-old at 35.0 weeks of gestation Dichorionic diamniotic twins Size date discrepancy COMPARISON: 11/13/2020 TECHNIQUE: Real time transabdominal imaging with color and M-mode Doppler. TWIN A: PRESENTATION: Breech PLACENTA LOCATION: Posterior AMNIOTIC FLUID: Normal MEASUREMENTS: 1. Biparietal Diameter: 8.7 cm; 35.1 wks 2. Head Circumference: 32.4 cm; 36.4 wks 3. Abdominal Circumference: 29.8 cm; 33.6 wks 4. Femur Length: 6.3 cm; 32.5 wks 5. Heart Rate: 140 beats per minute WEIGHT: EFW: 2301 grams (5 lbs 1 oz)--19 %. ANATOMY: Cerebral ventricles, posterior fossa, four-chamber view of the heart, stomach, kidneys and bladder are within normal limits GESTATIONAL AGE: 1. Established GA: 35.0 wks 2. GA from AUA: 34.5 wks BIOPHYSICAL PROFILE: Motion: 2 Tone: 2 Breathin Amniotic Fluid: 2 The total biophysical score is 8/8 TWIN B: PRESENTATION: Breech, left PLACENTA LOCATION: Anterior AMNIOTIC FLUID: Normal MEASUREMENTS: 1. Biparietal Diameter: 7 cm; 31.4 wks 2. Head Circumference: 31.7 cm; 35.5 wks 3. Abdominal Circumference: 33.0 cm; 37.0 wks 4. Femur Length: 6.2 cm; 32.3 wks 5. Heart Rate: 160 beats per minute WEIGHT: EFW: 2576 grams (5 lbs 11 oz)--48 %. ANATOMY: Cerebral ventricles, posterior fossa, four-chamber view of the heart, stomach, kidneys and urinary bladder are within normal limits GESTATIONAL AGE: 1. Established GA: 35.0 wks 2. GA from AUA: 34.2 wks ESTIMATED DATE OF DELIVERY: 1. Established BIB: 12/25/2020 2. BIB from [facility]: 12/30/2020 BIOPHYSICAL PROFILE: Motion: 2 Tone: 2 Breathin Amniotic Fluid: 2 The total biophysical score is 8/8 US/US OB f/u add gest IMPRESSION: 1. Appropriately grown, concordant, DICHORIONIC DIAMNIOTIC twins. 2. Normal AFV x 2 3. Reassuring biophysical profile Continue weekly testing. Thank you very much for this referral. Total time 20 minutes. The time spent was devoted to counseling the patient about the disease and diagnosis, coordinating care including reviewing her records, pertinent lab data and studies, as well as discussing diagnostic evaluation and workup, plan therapeutic interventions and future disposition of care. This includes any additional research needed to obtain further information in formulating the plan of care of this patient. This note was generated with a voice recognition program. Please excuse any errors which may have been overlooked during my review of this note. Sometimes these errors may affect the content or meaning of a given sentence.
== END 2020-11-20 14:56 | disposition home or self-care (01) ==
LOC: HO.US 14:55
PROVIDERS: PCP Internal Medicine; Visit Provider Obstetrics & Gynecology
DX: O30.043 Twin pregnancy, dichorionic/diamniotic, third trimester (principal)
CPT/HCPCS: 76816

== ENCOUNTER 2020-11-25 14:24 | Outpatient (REF) | payer OTHER, SELFPAY ==
[2020-11-25 15:53] LABS: Hematocrit 26.7 % (37-47); Hemoglobin 8.5 g/dl (12.0-16.0); Mean Corpuscular HGB Conc 31.8 g/dl (31.0-35.0); Mean Corpuscular Hemoglobin 27.7 pg (27.0-33.0); Mean Platelet Volume 10.4 fL (9.4-12.3); Platelet Count 255 X10*3/uL (160-400); Red Blood Count 3.07 X10*6/uL (4.20-5.50); Red Cell Distribution Width 13.2 % (11.0-16.0)
== END 2020-11-25 14:25 | disposition home or self-care (01) ==
LOC: HO.LAB 14:24
PROVIDERS: PCP Internal Medicine; Visit Provider Obstetrics & Gynecology
DX: O30.042 Twin pregnancy, dichorionic/diamniotic, second trimester (principal)
CPT/HCPCS: 36415; 59025; 85027; 99212

== ENCOUNTER 2020-11-27 14:25 | Outpatient (REF) | payer OTHER, SELFPAY ==
--- NOTE | ~2020-11-27 | US_ITS ---
EXAMINATION: US OBSTETRICAL (BIOPHYSICAL PROFILE) CLINICAL INFORMATION: 30-year-old at the 36.0 weeks of gestation Dichorionic diamniotic twins testing COMPARISON: 11/20/2020 TECHNIQUE: Ultrasound of the pelvis is performed. Biophysical profile is performed over 30 minutes with assessment of breathing, gross body movement, tone, and qualitative amniotic fluid volume. Each matrix is scored 0 or 2, depending if the metric is present. Maximum total score possible is 8. Examination is not intended to assess for anomalies. FINDINGS: Twin A: POSITION: Breech, maternal right, female AMNIOTIC FLUID VOLUME: wnl CARDIAC ACTIVITY: 130 beats per minute BIOPHYSICAL PROFILE: Motion: 2 Tone: 2 Breathin Amniotic Fluid: 2 The total biophysical score is 8/8 Twin B: POSITION: Breech, maternal left, male AMNIOTIC FLUID VOLUME: wnl CARDIAC ACTIVITY: 134 beats per minute BIOPHYSICAL PROFILE: Motion: 2 Tone: 2 Breathin Amniotic Fluid: 2 The total biophysical score is 8/8 Two placentas and thick membranes the twins are noted. This is consistent with dichorionic diamniotic twins US/US OB f/u add gest IMPRESSION: 1. Active dichorionic diamniotic twin gestation 2. Both twins are in breech presentation 3. Reassuring BPP and ABA Thank you for allowing me to participate in her care. RECOMMENDATION: 1. Weekly biophysical profile and nonstress test. 2. Interval growth next week. 3. Agree with plan for section at approximately 38 weeks. Thank you for allowing me to participate in her care. Please contact me with any questions or concerns Total time 30 minutes. The time spent was devoted to counseling the patient about the disease and diagnosis, coordinating care including reviewing her records, pertinent lab data and studies, as well as discussing diagnostic evaluation and workup, plan therapeutic interventions and future disposition of care. This includes any additional research needed to obtain further information in formulating the plan of care of this patient. This note was generated with a voice recognition program. Please excuse any errors which may have been overlooked during my review of this note. Sometimes these errors may affect the content or meaning of a given sentence.
== END 2020-11-27 14:26 | disposition home or self-care (01) ==
LOC: HO.US 14:25
PROVIDERS: Visit Provider Obstetrics & Gynecology
DX: O30.043 Twin pregnancy, dichorionic/diamniotic, third trimester (principal)
CPT/HCPCS: 76816; 87086

== ENCOUNTER → 2020-12-01 09:01 | Outpatient (BNVA) | payer OTHER, SELFPAY | PROVIDERS: Visit Provider Obstetrics & Gynecology | DX: O30.043 Twin pregnancy, dichorionic/diamniotic, third trimester (principal); O99.013 Anemia complicating pregnancy, third trimester; D64.9 Anemia, unspecified; Z3A.36 36 weeks gestation of pregnancy | CPT/HCPCS: 59025; 99212 ==

== ENCOUNTER 2020-12-01 12:43 | Outpatient (REF) | payer OTHER, SELFPAY | END 2020-12-01 12:44 | disposition home or self-care (01) | LOC: HO.MDS 12:43 | PROVIDERS: Visit Provider Obstetrics & Gynecology | DX: Z01.818 Encounter for other preprocedural examination (principal); O30.043 Twin pregnancy, dichorionic/diamniotic, third trimester; O99.013 Anemia complicating pregnancy, third trimester; D64.9 Anemia, unspecified; Z3A.00 Weeks of gestation of pregnancy not specified | CPT/HCPCS: 36430; 86850; 86900; 86901; 86923; P9016 ==

== ENCOUNTER 2020-12-04 13:54 | Outpatient (REF) | payer OTHER, SELFPAY ==
--- NOTE | ~2020-12-04 | US_ITS ---
EXAMINATION: US OBSTETRICAL (Twin Growth and BPP ) CLINICAL INFORMATION: 30-year-old at the 37.0 weeks of gestation Dichorionic diamniotic twins COMPARISON: 11/27/2020 TECHNIQUE: Real time transabdominal imaging with color and M-mode Doppler. TWIN A: PRESENTATION: Breech, maternal right PLACENTA LOCATION: Posterior without previa AMNIOTIC FLUID: Normal MEASUREMENTS: 1. Biparietal Diameter: 8.8 cm; 35.3 wks 2. Head Circumference: 32.7 cm; 30 7. wks 3. Abdominal Circumference: 31.2 cm; 35.2 wks 4. Femur Length: 6.6 cm; 30 4. wks 5. Heart Rate: 150 beats per minute WEIGHT: EFW: 2589 grams (5 lbs 11 oz)--13 %. ANATOMY: Following views were within normal limits: Posterior fossa, lateral ventricle, four-chamber view of the heart, stomach, kidneys, bladder. GESTATIONAL AGE: 1. Established GA: 37.0 wks 2. GA from AUA: 35.4 wks BIOPHYSICAL PROFILE: Motion: 2 Tone: 2 Breathin Amniotic Fluid: 2 The total biophysical score is 8/8 Doppler evaluation of the umbilical artery showed SD ratio of 2.5 which is within normal limits. TWIN B: PRESENTATION: Breech, left PLACENTA LOCATION: Anterior without previa AMNIOTIC FLUID: Normal MEASUREMENTS: 1. Biparietal Diameter: 8.3 cm; 33.2 wks 2. Head Circumference: 32.2 cm; 36.3 wks 3. Abdominal Circumference: 32.2 cm; 36.1 wks 4. Femur Length: 6.4 cm; 33.1 wks 5. Heart Rate: 129 beats per minute WEIGHT: EFW: 2580 grams (5 lbs 11 oz)--12 %. ANATOMY: Lateral ventricles, four-chamber view of the heart, stomach, kidneys and bladder are within normal limits GESTATIONAL AGE: 1. Established GA: 37.0 wks 2. GA from AUA: 34.6 wks ESTIMATED DATE OF DELIVERY: 1. Established BIB: 12/25/2020 2. [facility] BIOPHYSICAL PROFILE: Motion: 2 Tone: 2 Breathin Amniotic Fluid: 2 The total biophysical score is 8/8 Doppler evaluation of the umbilical artery showed SD ratio of 2.2 which is within normal limits. US/US OB velocimetry umbilical ar IMPRESSION: 1. Appropriately grown, concordant, DICHORIONIC DIAMNIOTIC twins. There is been mass slightly less than expected interval growth. However, this can be normal at this gestational age for twins 2. Normal AFV x 2 3. Reassuring biophysical profile 4. Normal SD ratio in the umbilical artery for both twins I reviewed today's findings and gave her reassurance. Both twins are in breech presentation. She is scheduled for delivery at approximately 38 weeks of gestation. I reviewed the limitations of ultrasound and estimating weights. Advise continuing weekly testing until delivery. Thank you very much for this referral. Total time 20 minutes. The time spent was devoted to counseling the patient about the disease and diagnosis, coordinating care including reviewing her records, pertinent lab data and studies, as well as discussing diagnostic evaluation and workup, plan therapeutic interventions and future disposition of care. This includes any additional research needed to obtain further information in formulating the plan of care of this patient. This note was generated with a voice recognition program. Please excuse any errors which may have been overlooked during my review of this note. Sometimes these errors may affect the content or meaning of a given sentence.
--- NOTE | ~2020-12-04 | US_ITS ---
EXAMINATION: US OBSTETRICAL (Twin Growth and BPP ) CLINICAL INFORMATION: 30-year-old at the 37.0 weeks of gestation Dichorionic diamniotic twins COMPARISON: 11/27/2020 TECHNIQUE: Real time transabdominal imaging with color and M-mode Doppler. TWIN A: PRESENTATION: Breech, maternal right PLACENTA LOCATION: Posterior without previa AMNIOTIC FLUID: Normal MEASUREMENTS: 1. Biparietal Diameter: 8.8 cm; 35.3 wks 2. Head Circumference: 32.7 cm; 30 7. wks 3. Abdominal Circumference: 31.2 cm; 35.2 wks 4. Femur Length: 6.6 cm; 30 4. wks 5. Heart Rate: 150 beats per minute WEIGHT: EFW: 2589 grams (5 lbs 11 oz)--13 %. ANATOMY: Following views were within normal limits: Posterior fossa, lateral ventricle, four-chamber view of the heart, stomach, kidneys, bladder. GESTATIONAL AGE: 1. Established GA: 37.0 wks 2. GA from AUA: 35.4 wks BIOPHYSICAL PROFILE: Motion: 2 Tone: 2 Breathin Amniotic Fluid: 2 The total biophysical score is 8/8 Doppler evaluation of the umbilical artery showed SD ratio of 2.5 which is within normal limits. TWIN B: PRESENTATION: Breech, left PLACENTA LOCATION: Anterior without previa AMNIOTIC FLUID: Normal MEASUREMENTS: 1. Biparietal Diameter: 8.3 cm; 33.2 wks 2. Head Circumference: 32.2 cm; 36.3 wks 3. Abdominal Circumference: 32.2 cm; 36.1 wks 4. Femur Length: 6.4 cm; 33.1 wks 5. Heart Rate: 129 beats per minute WEIGHT: EFW: 2580 grams (5 lbs 11 oz)--12 %. ANATOMY: Lateral ventricles, four-chamber view of the heart, stomach, kidneys and bladder are within normal limits GESTATIONAL AGE: 1. Established GA: 37.0 wks 2. GA from AUA: 34.6 wks ESTIMATED DATE OF DELIVERY: 1. Established BIB: 12/25/2020 2. BIB from [facility]: 01/09/2021 BIOPHYSICAL PROFILE: Motion: 2 Tone: 2 Breathin Amniotic Fluid: 2 The total biophysical score is 8/8 Doppler evaluation of the umbilical artery showed SD ratio of 2.2 which is within normal limits. US/US OB follow up IMPRESSION: 1. Appropriately grown, concordant, DICHORIONIC DIAMNIOTIC twins. There is been mass slightly less than expected interval growth. However, this can be normal at this gestational age for twins 2. Normal AFV x 2 3. Reassuring biophysical profile 4. Normal SD ratio in the umbilical artery for both twins I reviewed today's findings and gave her reassurance. Both twins are in breech presentation. She is scheduled for delivery at approximately 38 weeks of gestation. I reviewed the limitations of ultrasound and estimating weights. Advise continuing weekly testing until delivery. Thank you very much for this referral. Total time 20 minutes. The time spent was devoted to counseling the patient about the disease and diagnosis, coordinating care including reviewing her records, pertinent lab data and studies, as well as discussing diagnostic evaluation and workup, plan therapeutic interventions and future disposition of care. This includes any additional research needed to obtain further information in formulating the plan of care of this patient. This note was generated with a voice recognition program. Please excuse any errors which may have been overlooked during my review of this note. Sometimes these errors may affect the content or meaning of a given sentence.
--- NOTE | ~2020-12-04 | US_ITS ---
EXAMINATION: US OBSTETRICAL (Twin Growth and BPP ) CLINICAL INFORMATION: 30-year-old at the 37.0 weeks of gestation Dichorionic diamniotic twins COMPARISON: 11/27/2020 TECHNIQUE: Real time transabdominal imaging with color and M-mode Doppler. TWIN A: PRESENTATION: Breech, maternal right PLACENTA LOCATION: Posterior without previa AMNIOTIC FLUID: Normal MEASUREMENTS: 1. Biparietal Diameter: 8.8 cm; 35.3 wks 2. Head Circumference: 32.7 cm; 30 7. wks 3. Abdominal Circumference: 31.2 cm; 35.2 wks 4. Femur Length: 6.6 cm; 30 4. wks 5. Heart Rate: 150 beats per minute WEIGHT: EFW: 2589 grams (5 lbs 11 oz)--13 %. ANATOMY: Following views were within normal limits: Posterior fossa, lateral ventricle, four-chamber view of the heart, stomach, kidneys, bladder. GESTATIONAL AGE: 1. Established GA: 37.0 wks 2. GA from AUA: 35.4 wks BIOPHYSICAL PROFILE: Motion: 2 Tone: 2 Breathin Amniotic Fluid: 2 The total biophysical score is 8/8 Doppler evaluation of the umbilical artery showed SD ratio of 2.5 which is within normal limits. TWIN B: PRESENTATION: Breech, left PLACENTA LOCATION: Anterior without previa AMNIOTIC FLUID: Normal MEASUREMENTS: 1. Biparietal Diameter: 8.3 cm; 33.2 wks 2. Head Circumference: 32.2 cm; 36.3 wks 3. Abdominal Circumference: 32.2 cm; 36.1 wks 4. Femur Length: 6.4 cm; 33.1 wks 5. Heart Rate: 129 beats per minute WEIGHT: EFW: 2580 grams (5 lbs 11 oz)--12 %. ANATOMY: Lateral ventricles, four-chamber view of the heart, stomach, kidneys and bladder are within normal limits GESTATIONAL AGE: 1. Established GA: 37.0 wks 2. GA from AUA: 34.6 wks ESTIMATED DATE OF DELIVERY: 1. Established BIB: 12/25/2020 2. BIB from [facility]: 01/09/2021 BIOPHYSICAL PROFILE: Motion: 2 Tone: 2 Breathin Amniotic Fluid: 2 The total biophysical score is 8/8 Doppler evaluation of the umbilical artery showed SD ratio of 2.2 which is within normal limits. US/US OB f/u add gest IMPRESSION: 1. Appropriately grown, concordant, DICHORIONIC DIAMNIOTIC twins. There is been mass slightly less than expected interval growth. However, this can be normal at this gestational age for twins 2. Normal AFV x 2 3. Reassuring biophysical profile 4. Normal SD ratio in the umbilical artery for both twins I reviewed today's findings and gave her reassurance. Both twins are in breech presentation. She is scheduled for delivery at approximately 38 weeks of gestation. I reviewed the limitations of ultrasound and estimating weights. Advise continuing weekly testing until delivery. Thank you very much for this referral. Total time 20 minutes. The time spent was devoted to counseling the patient about the disease and diagnosis, coordinating care including reviewing her records, pertinent lab data and studies, as well as discussing diagnostic evaluation and workup, plan therapeutic interventions and future disposition of care. This includes any additional research needed to obtain further information in formulating the plan of care of this patient. This note was generated with a voice recognition program. Please excuse any errors which may have been overlooked during my review of this note. Sometimes these errors may affect the content or meaning of a given sentence.
[2020-12-04 15:45] LABS: Hematocrit 29.3 % (37-47); Hemoglobin 9.2 g/dl (12.0-16.0); Mean Corpuscular HGB Conc 31.4 g/dl (31.0-35.0); Mean Corpuscular Hemoglobin 27.2 pg (27.0-33.0); Mean Corpuscular Volume 86.7 fL (80-98); Mean Platelet Volume 10.4 fL (9.4-12.3); Platelet Count 243 X10*3/uL (160-400); Red Blood Count 3.38 X10*6/uL (4.20-5.50); Red Cell Distribution Width 13.9 % (11.0-16.0)
== END 2020-12-04 13:55 | disposition home or self-care (01) ==
LOC: HO.US 13:54
PROVIDERS: Obstetrics & Gynecology; PCP Internal Medicine; Visit Provider Obstetrics & Gynecology
DX: O30.043 Twin pregnancy, dichorionic/diamniotic, third trimester (principal)
CPT/HCPCS: 36415; 76816; 76820; 85027

== ENCOUNTER → 2020-12-08 12:52 | Outpatient (BNVA) | payer OTHER, SELFPAY | PROVIDERS: Visit Provider Obstetrics & Gynecology | DX: O30.043 Twin pregnancy, dichorionic/diamniotic, third trimester (principal); O99.013 Anemia complicating pregnancy, third trimester; D64.9 Anemia, unspecified; Z3A.37 37 weeks gestation of pregnancy | CPT/HCPCS: 59025; 99212 ==

== ENCOUNTER 2020-12-08 13:56 | Outpatient (REF) | payer OTHER, SELFPAY | END 2020-12-08 13:57 | disposition home or self-care (01) | LOC: HO.MDS 13:56 | PROVIDERS: Visit Provider Obstetrics & Gynecology | DX: Z01.818 Encounter for other preprocedural examination (principal); O99.013 Anemia complicating pregnancy, third trimester; D64.9 Anemia, unspecified; Z3A.36 36 weeks gestation of pregnancy | CPT/HCPCS: 36430; 59025; 86850; 86900; 86901; 86923; 99212; P9016 ==

== ENCOUNTER 2020-12-11 10:26 | Outpatient (REF) | payer OTHER, SELFPAY ==
--- NOTE | ~2020-12-11 | US_ITS ---
EXAMINATION: US OBSTETRICAL (BIOPHYSICAL PROFILE) CLINICAL INFORMATION: 30-year-old at the 38.0 weeks of gestation Dichorionic diamniotic twins COMPARISON: 12/04/2020 TECHNIQUE: Ultrasound of the pelvis is performed. Biophysical profile is performed over 30 minutes with assessment of breathing, gross body movement, tone, and qualitative amniotic fluid volume. Each matrix is scored 0 or 2, depending if the metric is present. Maximum total score possible is 8. Examination is not intended to assess for anomalies. FINDINGS: Twin A: POSITION: Complete breech, maternal right AMNIOTIC FLUID VOLUME: wnl CARDIAC ACTIVITY: 126 beats per minute BIOPHYSICAL PROFILE: Motion: 2 Tone: 2 Breathin Amniotic Fluid: 2 The total biophysical score is 8/8 UA Doppler: SD 2.5, stable Twin B: POSITION: Cephalic, maternal left AMNIOTIC FLUID VOLUME: wnl CARDIAC ACTIVITY: 126 beats per minute BIOPHYSICAL PROFILE: Motion: 2 Tone: 2 Breathin Amniotic Fluid: 2 The total biophysical score is 8/8 UA Doppler: SD 2.3, stable Two placentas and thick membranes the twins are noted. This is consistent with dichorionic diamniotic twins US/US OB velocimetry umbilical ar IMPRESSION: 1. Active dichorionic diamniotic twin gestation 2. Reassuring BPP and ABA Thank you for allowing me to participate in her care. RECOMMENDATION: 1. Agree with delivered by section on 12/14/2020. Thank you for allowing me to participate in her care. Please contact me with any questions or concerns Total time 20 minutes. The time spent was devoted to counseling the patient about the disease and diagnosis, coordinating care including reviewing her records, pertinent lab data and studies, as well as discussing diagnostic evaluation and workup, plan therapeutic interventions and future disposition of care. This includes any additional research needed to obtain further information in formulating the plan of care of this patient. This note was generated with a voice recognition program. Please excuse any errors which may have been overlooked during my review of this note. Sometimes these errors may affect the content or meaning of a given sentence.
--- NOTE | ~2020-12-11 | US_ITS ---
EXAMINATION: US OBSTETRICAL (BIOPHYSICAL PROFILE) CLINICAL INFORMATION: 30-year-old at the 38.0 weeks of gestation Dichorionic diamniotic twins COMPARISON: 12/04/2020 TECHNIQUE: Ultrasound of the pelvis is performed. Biophysical profile is performed over 30 minutes with assessment of breathing, gross body movement, tone, and qualitative amniotic fluid volume. Each matrix is scored 0 or 2, depending if the metric is present. Maximum total score possible is 8. Examination is not intended to assess for anomalies. FINDINGS: Twin A: POSITION: Complete breech, maternal right AMNIOTIC FLUID VOLUME: wnl CARDIAC ACTIVITY: 126 beats per minute BIOPHYSICAL PROFILE: Motion: 2 Tone: 2 Breathin Amniotic Fluid: 2 The total biophysical score is 8/8 UA Doppler: SD 2.5, stable Twin B: POSITION: Cephalic, maternal left AMNIOTIC FLUID VOLUME: wnl CARDIAC ACTIVITY: 126 beats per minute BIOPHYSICAL PROFILE: Motion: 2 Tone: 2 Breathin Amniotic Fluid: 2 The total biophysical score is 8/8 UA Doppler: SD 2.3, stable Two placentas and thick membranes the twins are noted. This is consistent with dichorionic diamniotic twins US/US OB biophysical profile twin IMPRESSION: 1. Active dichorionic diamniotic twin gestation 2. Reassuring BPP and ABA Thank you for allowing me to participate in her care. RECOMMENDATION: 1. Agree with delivered by section on 12/14/2020. Thank you for allowing me to participate in her care. Please contact me with any questions or concerns Total time 20 minutes. The time spent was devoted to counseling the patient about the disease and diagnosis, coordinating care including reviewing her records, pertinent lab data and studies, as well as discussing diagnostic evaluation and workup, plan therapeutic interventions and future disposition of care. This includes any additional research needed to obtain further information in formulating the plan of care of this patient. This note was generated with a voice recognition program. Please excuse any errors which may have been overlooked during my review of this note. Sometimes these errors may affect the content or meaning of a given sentence.
--- NOTE | ~2020-12-11 | US_ITS ---
EXAMINATION: US OBSTETRICAL (BIOPHYSICAL PROFILE) CLINICAL INFORMATION: 30-year-old at the 38.0 weeks of gestation Dichorionic diamniotic twins COMPARISON: 12/04/2020 TECHNIQUE: Ultrasound of the pelvis is performed. Biophysical profile is performed over 30 minutes with assessment of breathing, gross body movement, tone, and qualitative amniotic fluid volume. Each matrix is scored 0 or 2, depending if the metric is present. Maximum total score possible is 8. Examination is not intended to assess for anomalies. FINDINGS: Twin A: POSITION: Complete breech, maternal right AMNIOTIC FLUID VOLUME: wnl CARDIAC ACTIVITY: 126 beats per minute BIOPHYSICAL PROFILE: Motion: 2 Tone: 2 Breathin Amniotic Fluid: 2 The total biophysical score is 8/8 UA Doppler: SD 2.5, stable Twin B: POSITION: Cephalic, maternal left AMNIOTIC FLUID VOLUME: wnl CARDIAC ACTIVITY: 126 beats per minute BIOPHYSICAL PROFILE: Motion: 2 Tone: 2 Breathin Amniotic Fluid: 2 The total biophysical score is 8/8 UA Doppler: SD 2.3, stable Two placentas and thick membranes the twins are noted. This is consistent with dichorionic diamniotic twins US/US OB biophysical profile IMPRESSION: 1. Active dichorionic diamniotic twin gestation 2. Reassuring BPP and ABA Thank you for allowing me to participate in her care. RECOMMENDATION: 1. Agree with delivered by section on 12/14/2020. Thank you for allowing me to participate in her care. Please contact me with any questions or concerns Total time 20 minutes. The time spent was devoted to counseling the patient about the disease and diagnosis, coordinating care including reviewing her records, pertinent lab data and studies, as well as discussing diagnostic evaluation and workup, plan therapeutic interventions and future disposition of care. This includes any additional research needed to obtain further information in formulating the plan of care of this patient. This note was generated with a voice recognition program. Please excuse any errors which may have been overlooked during my review of this note. Sometimes these errors may affect the content or meaning of a given sentence.
== END 2020-12-11 10:27 | disposition home or self-care (01) ==
LOC: HO.US 10:26
PROVIDERS: Visit Provider Obstetrics & Gynecology
DX: O30.049 Twin pregnancy, dichorionic/diamniotic, unspecified trimester (principal)
CPT/HCPCS: 76819; 76820

== ENCOUNTER → 2021-01-11 14:33 | Outpatient (BNVA) | payer OTHER, SELFPAY | PROVIDERS: Visit Provider Obstetrics & Gynecology | DX: Z98.890 Other specified postprocedural states (principal) | CPT/HCPCS: 99212 ==

== ENCOUNTER 2021-02-01 16:37 | Outpatient (REF) | payer OTHER, SELFPAY | END 2021-02-01 16:38 | disposition home or self-care (01) | LOC: HO.LAB 16:37 | PROVIDERS: Visit Provider Nurse Practitioner Family | DX: N39.0 Urinary tract infection, site not specified (principal) | CPT/HCPCS: 87086; 87088; 87186 ==

== ENCOUNTER → 2021-03-08 11:31 | Outpatient (BNVA) | payer OTHER, SELFPAY | PROVIDERS: PCP Internal Medicine; Visit Provider Advanced Practice Midwife ==

== ENCOUNTER → 2021-03-16 09:05 | Outpatient (BNVA) | payer OTHER, SELFPAY | PROVIDERS: PCP Internal Medicine; Visit Provider Advanced Practice Midwife | DX: Z30.9 Encounter for contraceptive management, unspecified (principal) | CPT/HCPCS: 96372; 99211 ==

== ENCOUNTER → 2021-06-07 12:51 | Outpatient (BNVA) | payer OTHER, SELFPAY | PROVIDERS: PCP Internal Medicine; Visit Provider Advanced Practice Midwife | DX: Z30.42 Encounter for surveillance of injectable contraceptive (principal) | CPT/HCPCS: 96372; 99211 ==

== ENCOUNTER → 2021-08-23 13:04 | Outpatient (BNVA) | payer OTHER, SELFPAY | PROVIDERS: PCP Internal Medicine; Visit Provider Advanced Practice Midwife | DX: Z30.42 Encounter for surveillance of injectable contraceptive (principal) | CPT/HCPCS: 96372; 99211 ==

== ENCOUNTER → 2021-11-15 13:11 | Outpatient (BNVA) | payer OTHER, SELFPAY | PROVIDERS: PCP Internal Medicine; Visit Provider Advanced Practice Midwife | DX: Z30.42 Encounter for surveillance of injectable contraceptive (principal) | CPT/HCPCS: 96372; 99211 ==

== ENCOUNTER → 2022-02-11 10:50 | Outpatient (BNVA) | payer OTHER, SELFPAY | PROVIDERS: PCP Internal Medicine; Visit Provider Advanced Practice Midwife | DX: Z30.42 Encounter for surveillance of injectable contraceptive (principal) | CPT/HCPCS: 96372; 99211 ==

== ENCOUNTER 2022-04-11 14:24 | Outpatient (REF) | payer OTHER, SELFPAY | END 2022-04-11 14:25 | disposition home or self-care (01) | LOC: HO.LNP 14:24 | PROVIDERS: Visit Provider Physician Assistant | DX: R30.0 Dysuria (principal) | CPT/HCPCS: 87086; 87088; 87186 ==

== ENCOUNTER 2022-05-06 10:11 | Outpatient (REF) | payer OTHER, SELFPAY ==
[2022-05-06 15:08] LABS: CT PCR NOT DETECTED (Not Detect.); NG PCR NOT DETECTED (Not Detect.)
== END 2022-05-06 10:12 | disposition home or self-care (01) ==
LOC: HO.LNP 10:11
PROVIDERS: Visit Provider Advanced Practice Midwife
DX: Z11.3 Encounter for screening for infections with a predominantly sexual mode of transmission (principal)
CPT/HCPCS: 87491; 87591

== ENCOUNTER → 2022-05-09 13:05 | Outpatient (BNVA) | payer OTHER, SELFPAY | PROVIDERS: PCP Internal Medicine; Visit Provider Advanced Practice Midwife | DX: Z30.42 Encounter for surveillance of injectable contraceptive (principal) | CPT/HCPCS: 96372; 99211 ==

== ENCOUNTER → 2022-08-01 12:46 | Outpatient (BNVA) | payer OTHER, SELFPAY | PROVIDERS: PCP Internal Medicine; Visit Provider Advanced Practice Midwife | DX: Z30.42 Encounter for surveillance of injectable contraceptive (principal) | CPT/HCPCS: 96372; 99211 ==

== ENCOUNTER 2022-08-31 09:40 | Outpatient (REF) | payer OTHER, SELFPAY ==
--- NOTE | ~2022-08-31 | US_ITS ---
EXAMINATION: US ABDOMEN LIMITED CLINICAL INFORMATION: Unspecified abdominal hernia without obstruction or gangrene. COMPARISON: None TECHNIQUE: Real-time imaging of the periumbilical region. FINDINGS: The patient directed the unit aide to the area of palpable concern approximately 5 cm above the umbilicus. No discrete hernia seen. US/US abdomen limited IMPRESSION: No visible hernia.
== END 2022-08-31 09:41 | disposition home or self-care (01) ==
LOC: HO.US 09:40
PROVIDERS: Visit Provider Internal Medicine
DX: K46.9 Unspecified abdominal hernia without obstruction or gangrene (principal)
CPT/HCPCS: 76705

== ENCOUNTER → 2022-10-26 08:53 | Outpatient (BNVA) | payer OTHER, SELFPAY | PROVIDERS: PCP Internal Medicine; Visit Provider Advanced Practice Midwife | DX: Z30.42 Encounter for surveillance of injectable contraceptive (principal) | CPT/HCPCS: 96372; 99211 ==

== ENCOUNTER → 2023-01-13 08:51 | Outpatient (BNVA) | payer OTHER, SELFPAY | PROVIDERS: PCP Internal Medicine; Visit Provider Advanced Practice Midwife | DX: Z30.42 Encounter for surveillance of injectable contraceptive (principal) | CPT/HCPCS: 96372; 99211 ==

== ENCOUNTER 2023-04-10 08:57 | Outpatient (AMB) | payer OTHER, SELFPAY ==
[2023-04-10 09:09] VITALS: BMI 31.2
--- NOTE | 2023-04-10 09:09 | AM.OFFVISNUR ---
Intake Vital Signs 04/10/23 09:09 Height 5 ft 7 in Weight 199 lb 5 oz BMI 31.2 Intake Visit Reasons: DEPO Grommet Man Required: No Allergies No Known Allergies Allergy (Verified 11/09/22 14:49) Is last menstrual period known: No Post menopausal: No Patient : No Nursing Note Naina is here for her scheduled Depo Provera injection. Pt is doing well, no c/o. Does not get regular menses and usually spots for a day. Pt tolerated injection well. Pt was advised her last AG was 05/06/22 and she needs to schedule next AG soon. Pt verbalizes understanding and agrees with plan. No further questions. Office Procedures Depo Questionnaire If YES to any of the following questions, please consult a provider. Date of last injection: 01/13/23 Date of last gynecology exam: 05/06/22 Menstrual pattern since last injection has been: Not Applicable Irregular bleeding?: No Breast lumps or other breast changes?: No Changes in weight or appetite?: No Depression or changes in mood?: No Abnormal hair growth or loss?: No Skin problems (rash, acne, discoloration)?: No Pain at the injection site?: No Headaches?: No Nervousness?: No Abdominal pain or cramping?: No Dizziness or nausea?: No Fatigue or weakness?: No Decrease in sexual drive?: No Chest pain or shortness of breath?: No Swelling in arms or legs?: No Form completed by?: Angle De La Torre RN Office Meds Depo-Provera 150 mg/mL intramuscular syringe Performing Provider: Erica Amaral CNM Performing Location: [facility] [place] [facility] Administered by: Angle De La Torre on 04/10/23 09:12 Dose Route Admin Location Dispensed Lot Number Expiration Date [facility] Station Supervisor 150 mg IM left deltoid 1 mL [id number] 12/21/24 13525-947-30 [email or web address] [facility] Coding Level of Care Code Established Pt Est Pt Level 1 (14961) Patient Type Established History Problem Focused Medical Decision Making Straight Forward Time Spent (min) 12 Assessment & Plan Assessment & Plan Orders: Orders AMB Medroxyprogesterone Injection Patient Supplied Today Z30.42 - Encounter for surveillance of injectable contraceptive Patient Instructions: Schedule next Depo Provera injection for 12 weeks out and schedule next AG as soon as possible. Last AG 05/06/22. Pt verbalizes understanding and agrees with plan. No further questions.
== END 2023-04-10 10:27 | disposition home or self-care (01) ==
PROVIDERS: PCP Internal Medicine; Visit Provider Advanced Practice Midwife
DX: Z30.42 Encounter for surveillance of injectable contraceptive (principal)

== ENCOUNTER → 2023-04-10 08:57 | Outpatient (BNVA) | payer OTHER, SELFPAY | PROVIDERS: PCP Internal Medicine; Visit Provider Advanced Practice Midwife | DX: Z30.42 Encounter for surveillance of injectable contraceptive (principal) | CPT/HCPCS: 96372; 99211; J1050 ==

== ENCOUNTER 2023-05-31 14:14 | Outpatient (AMB) | payer OTHER, SELFPAY ==
[2023-05-31 14:15] VITALS: BP 112/74; PULSE 59; O2SAT 97; BMI 31.2
--- NOTE | 2023-05-31 14:15 | MHC.PC.OV ---
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 Accompanied by: Self / Same As Patient Allergies No Known Allergies Allergy (Verified 05/31/23 14:33) Medication List - Last Reconciled 05/31/23 by Cecilia Henao MD medroxyprogesterone (Depo-Provera) 150 mg IM Q12W venlafaxine ER 37.5 mg PO BEDTIME 90 days Tobacco use date assessed: 05/31/23 Dental Screening Dental Screen Date: 05/31/23 Did you have a dental visit in the last 12 months?: Yes Did you have a dental problem in the last 6 months where you did not have access to dental care?: No Was dental information given to patient?: Patient has dentist HPI HPI Comments History of Present Illness Details This is a 32-year-old female with severe major depression that comes for her physical exam. Depression has markedly improved with venlafaxine. Last Pap smear was 2019 with negative HPV. Complains of some bilateral hearing loss. Also has occasional chest pain that last to seconds and resolve on its own and happens at rest. [facility] Medical History (Updated 05/31/23 @ 14:47 by Cecilia Henao MD) Ventricular premature beats Surgical History History of History of ovarian cystectomy Family History Mother Hx of primary hypertension Hx of diabetes mellitus History of arthritis History of hypothyroidism Mental health disorder Father No problems noted. Maternal Aunt Mental health disorder Maternal Grandfather History of high cholesterol Hx of primary hypertension Maternal Grandmother History of high cholesterol Hx of primary hypertension History of arthritis History of throat cancer History of head and neck cancer Paternal Grandfather No problems noted. Paternal Grandmother No problems noted. Brother No problems noted. Social History Household Members: Spouse, Family and Children Both parents involved: Yes Caregiver staying overnight: No Housing: Apartment Alcohol intake: current Alcohol intake frequency: holidays/special occasions only Alcohol type: hard liquor Patient Tobacco Use Status: Never used Tobacco e-Cigarette/Vaping Use: Never Used Second Hand Smoke Exposure: No service: No Current occupational status: unemployed Current occupational exposures/hazards: No Gender identity: Female Cognitive needs: No Hearing needs: No Vision needs: No Female Reproductive History Menstrual Age of Menarche: 10 Questionnaire PHQ-9 Over the last 2 weeks, how often have you been bothered by any of the following problems? 1. Little interest or pleasure in doing things: not at all 2. Feeling down, depressed, or hopeless: several days 3. Trouble falling or staying asleep, or sleeping too much: not at all 4. Feeling tired or having little energy: not at all 5. Poor appetite or overeating: not at all 6. Feeling bad about yourself - or that you are a failure or have let yourself or your family down: not at all 7. Trouble concentrating on things, such as reading the newspaper or watching television: not at all 8. Moving or speaking so slowly that other people could have noticed. Or the opposite - being so fidgety or restless that you have been moving around a lot more than usual: not at all 9. Thoughts that you would be better off or of hurting yourself in some way: not at all Total score: 1 Depression Screening Interpretation: Positive Depression Screening Done: Yes 56609 - PHQ-9 Billing: Yes Source: Developed by Drs. Greg Marquis, Aure Finley, Jose Parikh and colleagues, with an educational carmita from [employer]. Thrive Questionnaire Date Thrive assessed: 11/09/22 AUDIT C Alcohol Use Questionnaire (AUDIT-C) 1. How often do you have a drink containing alcohol?: Never Total Score: 0 DEVENDRA-7 AMB Questionnaire DEVENDRA-7 Date DEVENDRA - 7 assessed: 05/31/23 Feeling nervous, anxious, or on edge: 0 = Not at all Not being able to stop or control worryin = Not at all Worrying too much about different things: 0 = Not at all Trouble relaxin = Not at all Being so restless that it is hard to sit still: 0 = Not at all Becoming easily annoyed or irritable: 0 = Not at all Feeling afraid as if something awful might happen: 0 = Not at all Total DEVENDRA-7 score (0-4 normal; 5-9 mild; 10-14 moderate; 15-21 severe): 0 Source: Developed by Drs. Greg Marquis, Aure Finley, Jose Parikh and colleagues, with an educational carmita from [employer]. DEVENDRA-7 Assessment Billing DEVENDRA-7 Assessment Tool: DEVENDRA-7 Assessment 24009 Review of Systems Const All systems reviewed & are unremarkable except as noted in HPI and below Eyes Reports no additional complaints, Denies change in vision and Denies other visual disturbances ENT Reports hearing loss Card Reports chest pain at rest, Denies chest pain with activity, Denies edema, Denies irregular heart rhythm, Denies claudication, Denies dyspnea, Denies dyspnea on exertion, Denies orthopnea, Denies paroxysmal nocturnal dyspnea and Denies slow heart rate Resp Denies cough, Denies dyspnea and Denies dyspnea on exertion GI Denies abdominal pain, Denies change in bowel habits, Denies excessive flatus, Denies nausea and Denies vomiting Denies urinary incontinence, Denies urinary hesitancy and Denies urinary urgency Musc Denies abnormal gait, Denies atrophy, Denies deformity and Denies limited range of motion Skin/Breast Denies bleeding lesions, Denies changing lesions and Denies rash Neuro Denies abnormal gait, Denies behavioral changes, Denies confusion and Denies lack of coordination Psych Denies behavioral changes and Denies confusion Physical exam (Primary Care) Vital Signs: Last Vital Signs Pulse 59 05/31/23 14:15 BP 112/74 05/31/23 14:15 Pulse Ox 97 05/31/23 14:15 Oxygen Delivery Method Room Air 05/31/23 14:15 BMI result Body Mass Index 31.2 Tobacco/Smoking Status: Tobacco use Status Tobacco use date assessed 05/31/23 05/31/23 14:16 Patient Tobacco Use Status Never used Tobacco 05/31/23 14:16 Tobacco use type 01/13/23 08:51 e-Cigarette/Vaping Use Never Used 05/31/23 14:16 PHQ-9: PHQ-9 Score PHQ-9: Total score 1 05/31/23 14:36 Depression Screening Interpretation: Positive Thrive Assessment: Date of Thrive Assessment Date Thrive assessed 11/09/22 05/31/23 14:16 Const General: No confusion Orientation/consciousness: patient oriented x3 and No confusion HENMT Head: Yes normal to inspection, Yes normocephalic and Yes atraumatic Ears: external ears normal Eyes General: appearance normal, both eyes and all related structures Eyelids: Yes eyelids normal Conjunctivae: conjunctivae normal Neck Neck: Yes normal visual inspection and Yes supple Resp Effort & Inspection: normal respiratory effort Auscultation: clear to auscultation bilaterally Cardio Jugular venous distension: no JVD Rate: regular rate Rhythm: regular rhythm Heart sounds: S1 normal heart sound present and S2 normal heart sound present GI Inspection: Yes normal to inspection Palpation (GI): Soft to palpation and nontender Auscultation: normal bowel sounds Skin General skin exam: no rashes or lesions noted Neuro General: patient oriented x3, no focal motor deficits and No confusion Extrem General: Yes full ROM Psych Appearance: grossly normal Office Procedures Flu Questionnaire Does the patient have a severe egg allergy?: No Does the patient have severe life threatening allergies?: No Does the patient have a fever or illness today?: No Has the patient ever had Guillain-[place] Syndrome?: No Has the patient ever had any past reaction to a flu shot?: No Immunizations flu vacc [id number] 6mos up(PF) 60 mcg(15 mcgx4)/0.5 mL IM syringe Performing Provider: Cecilia Henao MD Performing Location: [facility] Administered by: OFE Diaz on 05/31/23 14:30 Dose Route Admin Location Dispensed Lot Number Expiration Date [facility] Patient Sitter 0.5 mL IM Left Deltoid 0.5 mL [id number] 01/21/24 71188-149-69 [employer] VIS Given Date VIS Provided VIS Publication Date 05/31/23 Single Vaccine 21 Eligibility Eligibility Date Funding Source Not [facility] Eligible 05/31/23 Private Assessment and Plan Assessment & Plan (1) Physical exam: Code(s): Z00.00 - Encounter for general adult medical examination without abnormal findings Plan: Repeat in a year. (2) Severe recurrent major depression: Code(s): F33.2 - Major depressive disorder, recurrent severe without psychotic features Plan: Continue venlafaxine. Orders: Orders Influenza [id number] Immunization Today Z23 - Encounter for immunization ECG 12 lead EKG Today R07.9 - Chest pain, unspecified Referrals Speech and Hearing Referral H91.90 - Unspecified hearing loss, unspecified ear Coding Level of Care Code Est Pt Prev Care [id number]([id number]) Diagnoses Physical exam Z00.00 Severe recurrent major depression F33.2 Additional Codes DEVENDRA-7 Assessment Billing - DEVENDRA-7 Assessment Tool: DEVENDRA-7 Assessment 01663 ([id number]) Time Spent (min) 32
== END 2023-05-31 14:52 | disposition home or self-care (01) ==
PROVIDERS: PCP Internal Medicine; Visit Provider Internal Medicine
DX: Z00.00 Encounter for general adult medical examination without abnormal findings (principal); F33.2 Major depressive disorder, recurrent severe without psychotic features; Z23 Encounter for immunization
CPT/HCPCS: 90471; 90686; 99395

== ENCOUNTER 2023-06-05 11:59 | Outpatient (REF) | payer OTHER, SELFPAY ==
[2023-06-05 13:00] LABS: HBS Num1 10.45 mIU/mL (0-7.99); HBc Num1 0.08 S/CO (0.00-0.79); HBsAGNum1 0.29 S/CO (0.00-0.99); Hepatitis B Core Antibody Nonreactive (Nonreactive); Hepatitis B Surface Antigen Negative (Negative)
[2023-06-05 14:19] LABS: HBS Num2 10.81 mIU/mL (0-7.99); HBS Num3 9.92 mIU/mL (0-7.99); ~Hepatitis B Surface Antibody GRAYZONE (Nonreactive)
[2023-06-06 08:54] LABS: Mumps Virus IgG Antibody <9.00 AU/mL; Rubella IgG Antibody 1.37 Index
[2023-06-07 17:43] LABS: TS Negative Control Passed; TS Panel A 0; TS Panel B 0; TS Positive Control Passed; TSpotTB Negative (Negative)
== END 2023-06-05 12:00 | disposition home or self-care (01) ==
LOC: HO.LAB 11:59
PROVIDERS: PCP Internal Medicine; Visit Provider Internal Medicine
DX: Z11.1 Encounter for screening for respiratory tuberculosis (principal); Z01.84 Encounter for antibody response examination
CPT/HCPCS: 36415; 86481; 86704; 86706; 86735; 86762; 86765; 86787; 87340

== ENCOUNTER 2023-06-19 13:36 | Outpatient (AMB) | payer OTHER, SELFPAY ==
--- NOTE | 2023-06-19 13:42 | AM.OFFVISNUR ---
Intake Intake Visit Reasons: MMR Allergies No Known Allergies Allergy (Verified 05/31/23 14:33) Immunizations M-M-R II (PF) 1,000-12,500 TCID50/0.5 mL subcutaneous solution Performing Provider: Cecilia Henao MD [place] [facility] [place] Administered by: Kristi Black RN on 06/19/23 13:51 Dose Route Admin Location Dispensed Lot Number Expiration Date [employer] 0.5 mL subcut Left Arm 0.5 mL [id number] 05/10/23 9253-1516-29 [employer] D VIS Given Date VIS Provided VIS Publication Date 06/19/23 Single Vaccine 21 Eligibility Eligibility Date Funding Source Not C Eligible 06/19/23 Private Event Comments: Spoke with Dr Farley regarding Lot # and exp date Will order titer for 4 weeks from now Coding Assessment & Plan Assessment & Plan Orders: Orders MMR Immunization Today Z23 - Encounter for immunization
== END 2023-06-19 14:20 | disposition home or self-care (01) ==
PROVIDERS: PCP Internal Medicine; Visit Provider Internal Medicine
DX: Z23 Encounter for immunization (principal)
CPT/HCPCS: 90471; 90707

== ENCOUNTER → 2023-07-03 09:07 | Outpatient (BNVA) | payer OTHER, SELFPAY | PROVIDERS: PCP Internal Medicine; Visit Provider Advanced Practice Midwife ==

== ENCOUNTER 2023-07-05 14:54 | Outpatient (AMB) | payer OTHER, SELFPAY ==
[2023-07-05 15:10] VITALS: BMI 30.8
--- NOTE | 2023-07-05 15:10 | AM.OFFVISNUR ---
Intake Vital Signs 07/05/23 15:10 Height 5 ft 7 in Weight 89.131 kg BMI 30.8 Intake Visit Reasons: DEPO Allergies No Known Allergies Allergy (Verified 05/31/23 14:33) Nursing Note Naina is here today for her scheduled Depo-Provera INJ. She has no complaints. She was informed she has been scheduled for AG on 09/05/23, and must keep this appt , since her last AG was 04/2022. Pt verbs understanding. Office Procedures Depo Questionnaire If YES to any of the following questions, please consult a provider. Date of last injection: 04/10/23 Date of last gynecology exam: 05/06/22 Menstrual pattern since last injection has been: Light Irregular bleeding?: No Breast lumps or other breast changes?: No Changes in weight or appetite?: No Depression or changes in mood?: No Abnormal hair growth or loss?: No Skin problems (rash, acne, discoloration)?: No Pain at the injection site?: No Headaches?: No Nervousness?: No Abdominal pain or cramping?: No Dizziness or nausea?: No Fatigue or weakness?: No Decrease in sexual drive?: No Chest pain or shortness of breath?: No Swelling in arms or legs?: No Form completed by?: Mateo Guy LPN Office Meds Depo-Provera 150 mg/mL intramuscular syringe Performing Provider: Erica Amaral CNM [place] [facility] [place] [facility] Administered by: Tamie Guy LPN on 07/05/23 15:10 Dose Route Admin Location Dispensed Lot Number Expiration Date FORMER[facility] [employer] 150 mg IM lt deltoid 1 mL [id number] 07/23/24 03697-158-28 [employer] [facility] Coding Level of Care Code Established Pt Est Pt Level 1 (45137) Patient Type Established History Problem Focused Exam Problem Focused Medical Decision Making Straight Forward Time Spent (min) 15 Assessment & Plan Assessment & Plan Orders: Orders AMB Medroxyprogesterone Injection Patient Supplied Today Z30.42 - Encounter for surveillance of injectable contraceptive
== END 2023-07-05 15:07 | disposition home or self-care (01) ==
PROVIDERS: PCP Internal Medicine; Visit Provider Advanced Practice Midwife
DX: Z30.42 Encounter for surveillance of injectable contraceptive (principal)

== ENCOUNTER → 2023-07-05 14:54 | Outpatient (BNVA) | payer OTHER, SELFPAY | PROVIDERS: PCP Internal Medicine; Visit Provider Advanced Practice Midwife | DX: Z30.42 Encounter for surveillance of injectable contraceptive (principal) | CPT/HCPCS: 96372; 99211; J1050 ==

== ENCOUNTER 2023-07-27 12:46 | Outpatient (REF) | payer OTHER, SELFPAY ==
[2023-08-01 05:39] LABS: Rubella IgG Antibody 5.23 Index
== END 2023-07-27 12:47 | disposition home or self-care (01) ==
LOC: HO.LAB 12:46
PROVIDERS: PCP Internal Medicine; Visit Provider Internal Medicine
DX: R07.9 Chest pain, unspecified (principal); Z01.84 Encounter for antibody response examination
CPT/HCPCS: 36415; 86706; 86735; 86762; 86765; 93005

== ENCOUNTER → 2023-07-27 13:05 | Outpatient (BNV) | payer OTHER, SELFPAY | PROVIDERS: PCP Internal Medicine; Visit Provider Internal Medicine Cardiovascular Disease | DX: R07.9 Chest pain, unspecified (principal) | CPT/HCPCS: 93010 ==

== ENCOUNTER 2023-08-14 14:58 | Outpatient (AMB) | payer OTHER, SELFPAY ==
--- NOTE | 2023-08-14 15:12 | AM.OFFVISNUR ---
Intake Intake Visit Reasons: Hepatitis B vaccine Allergies No Known Allergies Allergy (Verified 05/31/23 14:33) Immunizations Engerix-B (PF) 20 mcg/mL intramuscular suspension Performing Provider: Cecilia Henao MD [facility] Administered by: Ariane Dietz RN on 08/14/23 15:12 Dose Route Admin Location Dispensed Lot Number Expiration Date ND Training Program Developer 1 mL IM Left Deltoid 1 mL [id number] 12/09/24 57826-329-44 [employer] VIS Given Date VIS Provided VIS Publication Date 08/14/23 Single Vaccine 22 Eligibility Eligibility Date Funding Source Not [facility] Eligible 08/14/23 Private Coding Assessment & Plan Assessment & Plan Orders: Orders Hepatitis B Adult Immunization Today Z23 - Encounter for immunization
== END 2023-08-14 15:13 | disposition home or self-care (01) ==
PROVIDERS: PCP Internal Medicine; Visit Provider Internal Medicine
DX: Z23 Encounter for immunization (principal)
CPT/HCPCS: 90471; 90746

== ENCOUNTER 2023-08-25 15:59 | Outpatient (REF) | payer OTHER, SELFPAY ==
[2023-08-25 18:06] LABS: Appearance Urine Clear; Color Urine Dark Yellow; Glucose Urine UA Negative (Negative); Leukocyte Esterase Urine Negative (Negative); Nitrite Urine Negative (Negative); Specific Gravity - Urine 1.025 (1.005-1.025); Urine Blood Negative (Negative); Urine Ketones Trace mg/dL (Negative); Urine Protein Negative (Neg-Trace)
[2023-08-26 04:39] LABS: HBS Num1 > 1000.00 mIU/mL (0-7.99); HBc Num1 0.11 S/CO (0.00-0.79); HBsAGNum1 0.39 S/CO (0.00-0.99); Hepatitis B Core Antibody Nonreactive (Nonreactive); Hepatitis B Surface Antigen Negative (Negative); ~Hepatitis B Surface Antibody REACTIVE (Nonreactive)
== END 2023-08-25 16:00 | disposition home or self-care (01) ==
LOC: HO.LAB 15:59
PROVIDERS: PCP Internal Medicine; Visit Provider Internal Medicine
DX: R39.9 Unspecified symptoms and signs involving the genitourinary system (principal); Z23 Encounter for immunization
CPT/HCPCS: 36415; 81003; 86704; 86706; 87340

== ENCOUNTER 2023-09-27 08:41 | Outpatient (AMB) | payer OTHER, SELFPAY ==
--- NOTE | 2023-09-27 08:45 | A.OFFVIS_ITS ---
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 Doing well with no concerns. She tries to eat healthy, plans to start going to the manager gyn. No regular monthly menses. Doing well on Depo, had a vasectomy, awaiting for final follow up. Currently is sexually active. She denies vaginal itching and irritation. STI screening offered; she accepts. Declines bloodwork. Denies family history of breast, ovarian or colon cancer. Last pap smear 2019, negative. [facility] Medical History (Updated 09/27/23 @ 09:09 by Erica Amaral CNM) Ventricular premature beats Surgical History History of History of ovarian cystectomy Family History Mother Hx of primary hypertension Hx of diabetes mellitus History of arthritis History of hypothyroidism Mental health disorder Father No problems noted. Maternal Aunt Mental health disorder Maternal Grandfather History of high cholesterol Hx of primary hypertension Maternal Grandmother History of high cholesterol Hx of primary hypertension History of arthritis History of throat cancer History of head and neck cancer Paternal Grandfather No problems noted. Paternal Grandmother No problems noted. Brother No problems noted. Social History Household Members: Spouse, Family and Children Both parents involved: Yes Caregiver staying overnight: No Housing: Apartment Alcohol intake: current Alcohol intake frequency: holidays/special occasions only Alcohol type: hard liquor Patient Tobacco Use Status: Never used Tobacco e-Cigarette/Vaping Use: Never Used Second Hand Smoke Exposure: No service: No Current occupational status: unemployed Current occupational exposures/hazards: No Gender identity: Female Cognitive needs: No Hearing needs: No Vision needs: No Female Reproductive History Menstrual Age of Menarche: 10 control method: progesterone injection (07/05/23) Total pregnancies: 4 Full term: 3 Number of Living Children: 4 Ab spontaneous: 1 Multiple births: 1 Date of last pap smear: 06/15/20 (neg pap and hpv) History of abnormal pap smear: Yes ( ascus +hpv) Review of Systems Const All systems reviewed & are unremarkable except as noted in HPI and below Reports as per HPI Eyes Reports no additional complaints ENT Reports no additional complaints Card Reports no additional complaints Resp Reports no additional complaints GI Reports as per HPI and Reports no additional complaints Reports as per HPI Musc Reports no additional complaints Skin/Breast Reports as per HPI Neuro Reports no additional complaints Psych Reports no additional complaints Endo Reports no additional complaints Brian/Lymph Reports no additional complaints Aller/Immun Reports no additional complaints Physical Exam Vital Signs: Last Vital Signs BP 90/60 09/27/23 08:46 BMI result Body Mass Index 31.0 Const General: cooperative, healthy appearing, no acute distress, well developed and alert Orientation/consciousness: patient oriented x3 HEENT Head: Yes normal to inspection Eyes General: appearance normal, both eyes and all related structures Neck Neck: Yes normal visual inspection Thyroid: Thyroid normal Chest Chest palpation & inspection: normal inspection of the chest and other (no puckering, dimpling, peau de orange, retraction, discharge, masses) Breast/axilla inspection: normal inspection of the breasts Breast/axilla palpation: normal palpation of the breasts Resp Effort & Inspection: normal respiratory effort GI Inspection: Yes normal to inspection Palpation (GI): Soft to palpation Rectal Exam - Female: deferred General: Yes bladder normal to palpation External Female Exam: normal external appearance and normal appearance of the urethra Speculum Exam - Vagina: normal appearance of the vagina, normal palpation and normal vaginal discharge Speculum Exam - Cervix: normal appearance of the cervix and normal palpation Bimanual exam- vagina & uterus: normal bimanual exam, normal palpation, uterine size normal, bladder normal to palpation, normal palpation and non-tender Bimanual Exam- Adnexa, other: no masses Skin General skin exam: no rashes or lesions noted Rashes: no rashes Neuro General: patient oriented x3 Cognition (Neuro): normal cognition Extrem General: Yes normal to inspection Psych Attitude: cooperative Thought process: Normal thought process present Assessment & Plan Assessment & Plan (1) Encounter for well woman exam with routine gynecological exam: Code(s): Z01.419 - Encounter for gynecological examination (general) (routine) without abnormal findings Plan Discussed: Current recommendations for pap smears per ASCCP guidelines. Breast awareness and periodic breast exams. Maintain a healthy lifestyle including a well balanced diet and routine exercise. Use Depo until negative sperm counts. Patient verbalizes understanding and agrees to the plan of care. She was given opportunity to ask questions and all questions were answered to the best of my ability. RTO in one year for annual manager gyn examination. This note is constructed using voice recognition software. While every effort has been made to ensure accuracy, thermal cutter helper errors may have been included. Orders: Orders CT NG by PCR Today Z20.2 - Contact with and (suspected) exposure to infections with a predominantly sexual mode of transmission Medications: Refilled medroxyprogesterone (Depo-Provera) 150 mg IM Q12W 1 mL 4RF Coding Level of Care Code Est Pt Prev Care 18-39y(91668) Diagnoses Encounter for well woman exam with routine gynecological exam Z01.419
[2023-09-27 08:46] VITALS: BP 90/60; BMI 31.0
== END 2023-09-27 09:29 | disposition home or self-care (01) ==
LOC: HO.HWS 08:42
PROVIDERS: PCP Internal Medicine; Visit Provider Advanced Practice Midwife
DX: Z30.42 Encounter for surveillance of injectable contraceptive (principal); Z01.419 Encounter for gynecological examination (general) (routine) without abnormal findings
CPT/HCPCS: 99395

== ENCOUNTER 2023-09-27 08:41 | Outpatient (REF) | payer OTHER, SELFPAY ==
[2023-09-27 12:32] LABS: CT PCR NOT DETECTED (Not Detect.); NG PCR NOT DETECTED (Not Detect.)
== END 2023-09-27 08:42 | disposition home or self-care (01) ==
LOC: HO.LNP 08:41
PROVIDERS: PCP Internal Medicine; Visit Provider Advanced Practice Midwife
DX: Z01.419 Encounter for gynecological examination (general) (routine) without abnormal findings (principal); Z30.42 Encounter for surveillance of injectable contraceptive; Z20.2 Contact with and (suspected) exposure to infections with a predominantly sexual mode of transmission
CPT/HCPCS: 0353U; 96372; 99395; J1050

== ENCOUNTER 2023-12-11 08:18 | Outpatient (AMB) | payer OTHER, SELFPAY ==
--- NOTE | 2023-12-11 08:21 | A.OFFPC_ITS ---
Vital Signs 12/11/23 08:22 Height 5 ft 7 in Weight 197 lb BMI 30.9 BP 112/80 Blood Pressure Location Lt brachial Position Sitting Intake Visit Reasons: lump on throat Intake Note: patient here c/o lump on left side throat Healthcare Consulting Manager Required: No Accompanied by: Child Allergies No Known Allergies Allergy (Verified 12/11/23 08:37) Medication List - Last Reconciled 12/11/23 by Cecilia Henao MD medroxyprogesterone (Depo-Provera) 150 mg IM Q12W venlafaxine ER 37.5 mg PO BEDTIME 90 days Tobacco use date assessed: 12/11/23 Dental Screening Dental Screen Date: 12/11/23 Did you have a dental visit in the last 12 months?: Yes Did you have a dental problem in the last 6 months where you did not have access to dental care?: No Was dental information given to patient?: Patient has dentist HPI HPI Comments History of Present Illness Details This is a 33-year-old female with mild major depression that complains of left anterior neck lymphadenopathy in submandibular area that she noticed about 2 weeks ago. No fever, nasal congestion or sore throat. No cough. No changes in weight. I will prescribe an antibiotic and order ultrasound. Depression has markedly improved with venlafaxine at bedtime. No chest pain or shortness of breath. [facility] Medical History (Updated 12/11/23 @ 09:00 by Cecilia Henao MD) Severe recurrent major depression Abdominal hernia Ventricular premature beats Surgical History History of History of ovarian cystectomy Family History Mother Hx of primary hypertension Hx of diabetes mellitus History of arthritis History of hypothyroidism Mental health disorder Father No problems noted. Maternal Aunt Mental health disorder Maternal Grandfather History of high cholesterol Hx of primary hypertension Maternal Grandmother History of high cholesterol Hx of primary hypertension History of arthritis History of throat cancer History of head and neck cancer Paternal Grandfather No problems noted. Paternal Grandmother No problems noted. Brother No problems noted. Social History Household Members: Spouse, Family and Children Housing: Apartment Alcohol intake: current Alcohol intake frequency: holidays/special occasions only Alcohol type: hard liquor Patient Tobacco Use Status: Never used Tobacco e-Cigarette/Vaping Use: Never Used Second Hand Smoke Exposure: No service: No Current occupational status: unemployed Current occupational exposures/hazards: No Gender identity: Female Cognitive needs: No Hearing needs: No Vision needs: No Female Reproductive History Menstrual Age of Menarche: 10 Questionnaire PHQ-9 Over the last 2 weeks, how often have you been bothered by any of the following problems? 1. Little interest or pleasure in doing things: several days 2. Feeling down, depressed, or hopeless: several days 3. Trouble falling or staying asleep, or sleeping too much: several days 4. Feeling tired or having little energy: several days 5. Poor appetite or overeating: more than half the days 6. Feeling bad about yourself - or that you are a failure or have let yourself or your family down: not at all 7. Trouble concentrating on things, such as reading the newspaper or watching television: several days 8. Moving or speaking so slowly that other people could have noticed. Or the opposite - being so fidgety or restless that you have been moving around a lot more than usual: several days 9. Thoughts that you would be better off or of hurting yourself in some way: not at all Total score: 8 Depression Screening Interpretation: Positive Depression Screening Follow-up: Existing condition and In treatment Depression Screening Done: Yes 63479 - PHQ-9 Billing: Yes Source: Developed by Drs. Greg Marquis, Aure Finley, Jose Parikh and colleagues, with an educational carmita from [facility]. Thrive Questionnaire Date Thrive assessed: 12/11/23 I am a: Patient What is your living situation today?: I have a steady place to live Within the past 12 months, did the food you bought not last and you didn't have the money to get more?: Never true Within the past 12 months, did you worry whether your food would run out before you got money to buy more?: Never true Do you have trouble paying for medicines?: No Do you have trouble getting transportation to medical appointments?: No Do you have trouble paying your heating and electricity bill?: No Do you have trouble taking care of your child, family member or friend?: No Do you have trouble with day-to-day activities such as bathing, preparing meals, shopping, managing finances, etc.?: No Are you currently unemployed and looking for a job?: No Are you interested in more education?: No Please select the resources that you would like help with: None Currently or been in a relationship where the following occur: no concerns reported THRIVE Score: 0 AUDIT C Alcohol Use Questionnaire (AUDIT-C) 1. How often do you have a drink containing alcohol?: Monthly or less 2. How many drinks containing alcohol do you have on a typical day when you are drinking?: 1 or 2 3. How often do you have six or more drinks on one occasion?: Never Total Score: 1 DEVENDRA-7 AMB Questionnaire DEVENDRA-7 Date DEVENDRA - 7 assessed: 12/11/23 Feeling nervous, anxious, or on edge: 2 = More than half the days Not being able to stop or control worryin = Not at all Worrying too much about different things: 2 = More than half the days Trouble relaxin = More than half the days Being so restless that it is hard to sit still: 1 = Several days Becoming easily annoyed or irritable: 1 = Several days Feeling afraid as if something awful might happen: 1 = Several days Total DEVENDRA-7 score (0-4 normal; 5-9 mild; 10-14 moderate; 15-21 severe): 9 Source: Developed by Drs. Greg Marquis, Aure Finley, Jose Parikh and colleagues, with an educational carmita from [facility]. DEVENDRA-7 Assessment Billing DEVENDRA-7 Assessment Tool: DEVENDRA-7 Assessment 92147 Review of Systems Const All systems reviewed & are unremarkable except as noted in HPI and below ENT Reports neck mass Card Denies chest pain at rest, Denies chest pain with activity, Denies edema, Denies irregular heart rhythm, Denies claudication, Denies dyspnea, Denies dyspnea on exertion, Denies orthopnea, Denies paroxysmal nocturnal dyspnea and Denies slow heart rate Resp Denies cough, Denies dyspnea and Denies dyspnea on exertion GI Denies abdominal pain, Denies change in bowel habits, Denies excessive flatus, Denies nausea and Denies vomiting Denies urinary incontinence, Denies urinary hesitancy and Denies urinary urgency Physical exam (Primary Care) Vital Signs: Last Vital Signs BP 112/80 12/11/23 08:22 BMI result Body Mass Index 30.9 Tobacco/Smoking Status: Tobacco use Status Tobacco use date assessed 12/11/23 12/11/23 08:28 Patient Tobacco Use Status Never used Tobacco 12/11/23 08:28 Tobacco use type 07/05/23 07:14 e-Cigarette/Vaping Use Never Used 12/11/23 08:28 PHQ-9: PHQ-9 Score PHQ-9: Total score 8 12/11/23 08:42 Depression Screening Interpretation: Positive Depression Screening Follow-up: Existing condition and In treatment Thrive Assessment: Date of Thrive Assessment Date Thrive assessed 12/11/23 12/11/23 08:28 Currently or been in a relationship where the following occur: no concerns reported HENMT Throat: Yes posterior oropharynx normal and Yes uvula midline Neck Neck: Yes full ROM and Yes lymphadenopathy (left anterior submandibular) Resp Effort & Inspection: normal respiratory effort Auscultation: clear to auscultation bilaterally Cardio Jugular venous distension: no JVD Rate: regular rate Rhythm: regular rhythm Heart sounds: S1 normal heart sound present and S2 normal heart sound present Extrem General: Yes full ROM Psych Appearance: grossly normal Assessment and Plan Assessment & Plan (1) Lymphadenopathy: Code(s): R59.1 - Generalized enlarged lymph nodes Plan: Start antibiotics. Ultrasound ordered. (2) Mild major depression: Code(s): F32.0 - Major depressive disorder, single episode, mild Plan: Continue venlafaxine. Orders: Orders Complete Blood Count Auto Diff Today D64.9 - Anemia, unspecified IRON PROFILE Today D64.9 - Anemia, unspecified Comprehensive Met. Panel Today R59.1 - Generalized enlarged lymph nodes US soft tiss head and/or neck Today R59.1 - Generalized enlarged lymph nodes Medications: New cephalexin 500 mg PO BID 14 tabs 0RF 7 days R59.1 - Generalized enlarged lymph nodes Coding Level of Care Code Est Pt Level 3 (27405) Diagnoses Lymphadenopathy R59.1 Mild major depression F32.0 Additional Codes DEVENDRA-7 Assessment Billing - DEVENDRA-7 Assessment Tool: DEVENDRA-7 Assessment 50177 ([id number]) Time Spent (min) 20
[2023-12-11 08:22] VITALS: BP 112/80; BMI 30.9
== END 2023-12-11 08:43 | disposition home or self-care (01) ==
PROVIDERS: PCP Internal Medicine; Visit Provider Internal Medicine
DX: R59.1 Generalized enlarged lymph nodes (principal); F32.0 Major depressive disorder, single episode, mild
CPT/HCPCS: 99213

== ENCOUNTER 2023-12-11 08:57 | Outpatient (REF) | payer OTHER, SELFPAY ==
[2023-12-11 09:20] LABS: MANUAL DIFF FLAG NO
[2023-12-11 09:30] LABS: Basophils Absolute Auto 0.1 X10*3/uL (0.0-0.2); Basophils Percent Auto 1.1 % (0-2); Eosinophils Absolute Auto 0.1 X10*3/uL (0.0-0.4); Eosinophils Percent Auto 1.8 % (0-4); Hemoglobin 12.9 g/dl (12.0-16.0); Imm Gran Abs Auto 0.02 X10*3/uL (0.00-0.03); Imm Gran Pct Auto 0.3 % (0.0-0.4); Lymphocytes Absolute Auto 1.7 X10*3/uL (1.2-4.9); Lymphocytes Percent Auto 23.7 % (20-40); Mean Corpuscular HGB Conc 33.1 g/dl (31.0-35.0); Mean Corpuscular Hemoglobin 29.5 pg (27.0-33.0); Mean Corpuscular Volume 89.2 fL (80.0-98.0); Mean Platelet Volume 9.9 fL (9.4-12.3); Monocytes Absolute Auto 0.4 X10*3/uL (0.1-1.2); Neutrophils Percent Auto 68.1 % (45-73); Platelet Count 314 X10*3/uL (160-400); Red Blood Count 4.37 X10*6/uL (4.20-5.50); Red Cell Distribution Width 12.2 % (11.0-16.0); White Blood Count 7.3 X10*3/uL (4.8-10.8)
[2023-12-11 09:53] LABS: Alanine Aminotransferase 26 U/L (0-31); Alkaline Phosphatase 82 U/L (39-117); Anion Gap 12 (12-20); Aspartate Amino Transferase 21 U/L (5-31); Bilirubin Total 0.6 mg/dL (0.0-1.0); Blood Urea Nitrogen 9 mg/dL (9-16); Calcium 9.5 mg/dL (8.4-10.2); Carbon Dioxide 24 mmol/L (22-29); Chloride 108 mmol/L (96-108); Estimated Glomerular Filt Rate > 60; Glucose Random 107 mg/dL (60-115); Iron 75 mcg/dL (30-160); Percent Iron Saturation 30 % (15-50); Sodium 140 mmol/L (135-145); Total Iron Binding Capacity 246 mcg/dL (228-428); Total Protein 7.7 g/dL (6.5-8.0); Unsaturated Iron Binding 171 ug/dL
== END 2023-12-11 08:58 | disposition home or self-care (01) ==
LOC: HO.LAB 08:57
PROVIDERS: PCP Internal Medicine; Visit Provider Internal Medicine
DX: D64.9 Anemia, unspecified (principal); R59.1 Generalized enlarged lymph nodes
CPT/HCPCS: 36415; 80053; 83540; 85025

== ENCOUNTER 2023-12-21 14:29 | Outpatient (REF) | payer OTHER, SELFPAY ==
--- NOTE | ~2023-12-21 | US_ITS ---
EXAMINATION: US SOFT TISSUE NECK CLINICAL INFORMATION: Generalized enlarged lymph nodes. Left anterior neck lymphadenopathy, submandibular. COMPARISON: None available. TECHNIQUE: Ultrasound of the neck soft tissues was performed with high- frequency chris-scale imaging and color Doppler. FINDINGS: LEFT NECK SOFT TISSUES: Ultrasound of the left neck, zone II, over the palpable area indicated by the patient demonstrates a 2.8 x 1.0 x 1.7 cm prominent hyperemic lymph node. It has a thin fatty hilum and central vascular flow,? Reactive lymph node. US/US soft tiss head and/or neck IMPRESSION: 1. 2.8 cm prominent hyperemic lymph node corresponds to the palpable area in the left neck indicated by the patient. 2. If clinically indicated further evaluation of the neck soft tissues and nodes may be performed with CT soft tissue neck with intravenous contrast or by 3 month follow-up ultrasound.
== END 2023-12-21 14:30 | disposition home or self-care (01) ==
LOC: HO.US 14:29
PROVIDERS: Visit Provider Internal Medicine
DX: R59.1 Generalized enlarged lymph nodes (principal)
CPT/HCPCS: 76536

== ENCOUNTER 2023-12-28 10:24 | Outpatient (REF) | payer OTHER, SELFPAY | END 2023-12-28 10:25 | disposition home or self-care (01) | LOC: HO.SH 10:24 | PROVIDERS: Visit Provider Internal Medicine | DX: Z01.118 Encounter for examination of ears and hearing with other abnormal findings (principal); H93.293 Other abnormal auditory perceptions, bilateral | CPT/HCPCS: 92557; 92567 ==

== ENCOUNTER 2024-04-02 12:55 | Outpatient (REF) | payer OTHER, SELFPAY ==
--- NOTE | ~2024-04-02 | US_ITS ---
EXAMINATION: US SOFT TISSUE HEAD/NECK CLINICAL INFORMATION: Generalized enlarged lymph nodes. COMPARISON: Ultrasound soft tissue neck 12/21/2023. TECHNIQUE: Linear transducer grayscale and color Doppler examination of the thyroid bed and surrounding soft tissue. FINDINGS: RIGHT NECK SOFT TISSUES: Scattered architecturally normal nodes are present. The nodes show normal fatty hilus, normal cortical thickness, and no cystic change or calcification. No abnormal color flow. The largest nodes are as follows: Level 1B: 1.0 x 0.5 x 0.6 cm. Normal tiana architecture. Level 1B: 1.0 x 0.6 x 1.4 cm. Normal tiana architecture. Level 3: 0.9 x 0.2 x 0.6 cm. Normal tiana architecture. LEFT NECK SOFT TISSUES: Scattered architecturally normal nodes are present. The nodes show normal fatty hilus, normal cortical thickness, and no cystic change or calcification. No abnormal color flow. The largest nodes are as follows: Level 2: 2.3 x 0.9 x 1.6 cm. Prior 1 2.8 x 1.0 x 1.7 cm. Normal tiana architecture. Level 2: 0.8 x 0.4 x 0.8 cm. Normal tiana architecture. Level 3: 1.3 x 0.4 x 0.9 cm. Normal tiana architecture. US/US soft tiss head and/or neck IMPRESSION: 1. Nonspecific bilateral cervical lymph nodes are seen, as detailed, one at right level 1B and a further at left level 2 pathologically enlarged. These show normal architectural features. Recommend management on a clinical basis. 2. If clinically indicated further evaluation of the neck soft tissues and nodes may be performed with CT soft tissue neck with intravenous contrast. Alternatively, continued ultrasound follow-up may be considered. Electronically signed by: Thong Brown MD 04/11/2024 04:31 PM EDT
== END 2024-04-02 12:56 | disposition home or self-care (01) ==
LOC: HO.US 12:55
PROVIDERS: PCP Internal Medicine; Visit Provider Internal Medicine
DX: R59.1 Generalized enlarged lymph nodes (principal)
CPT/HCPCS: 76536

== ENCOUNTER 2024-04-18 09:07 | Outpatient (AMB) | payer OTHER, SELFPAY ==
--- NOTE | 2024-04-18 10:39 | AM.OFFWIN_ITS ---
Intake Vital Signs 04/18/24 10:44 Height 5 ft 7 in Weight 197 lb BMI 30.9 BP 108/70 Blood Pressure Location Rt brachial Position Sitting Pulse 77 Pulse Source Pulse Oximeter Pulse Oximetry (%) 100 Oxygen Delivery Method Room Air Intake Visit Reasons: EP ?UTI Intake Note: Patient here for urine having a foul odor that has been present for about 1 we ek. pt denies any other sx. Patient Tobacco Use Status: Never used Tobacco Allergies No Known Allergies Allergy (Verified 04/18/24 10:44) Do you need a note to return to daycare/school/sports/work: No HPI EP ?UTI HPI0 Details This note is constructed using voice recognition software. While every effort has been made to ensure accuracy, jewel supervisor errors may have been in cluded. The patient is a 33 year old female who presents to the clinic today with 4 day history increased odor in urine without urgency, burning, frequency or back pain. She notes that she has had this in the past, and she typically was hydrating and able to flush his through however given that the symptoms did not resolve she decided to be evaluated. [facility] Medical History (Updated 04/18/24 @ 11:15 by Mildred Gomes NP) Severe recurrent major depression Abdominal hernia Ventricular premature beats Surgical History History of History of ovarian cystectomy Family History Mother Hx of primary hypertension Hx of diabetes mellitus History of arthritis History of hypothyroidism Mental health disorder Father No problems noted. Maternal Aunt Mental health disorder Maternal Grandfather History of high cholesterol Hx of primary hypertension Maternal Grandmother History of high cholesterol Hx of primary hypertension History of arthritis History of throat cancer History of head and neck cancer Paternal Grandfather No problems noted. Paternal Grandmother No problems noted. Brother No problems noted. Social History Household Members: Spouse, Family and Children Both parents involved: Yes Caregiver staying overnight: No Housing: Apartment Alcohol intake: current Alcohol intake frequency: holidays/special occasions only Alcohol type: hard liquor Patient Tobacco Use Status: Never used Tobacco e-Cigarette/Vaping Use: Never Used Second Hand Smoke Exposure: No service: No Current occupational status: unemployed Current occupational exposures/hazards: No Gender identity: Female Cognitive needs: No Hearing needs: No Vision needs: No Female Reproductive History Menstrual Age of Menarche: 10 Review of Systems Const All systems reviewed & are unremarkable except as noted in HPI and below Physical Exam Vital Signs: Last Vital Signs Pulse 77 04/18/24 10:44 BP 108/70 04/18/24 10:44 Pulse Ox 100 04/18/24 10:44 Oxygen Delivery Method Room Air 04/18/24 10:44 BMI result Body Mass Index 30.9 Const General: cooperative, healthy appearing, comfortable, no acute distress and alert Orientation/consciousness: patient oriented x3 Limitations: no limitations Resp Effort & Inspection: normal respiratory effort and able to speak in complete sentences General: Yes no CVA tenderness Back/Spine/Pelvis Back: no CVA tenderness Skin General skin exam: no rashes or lesions noted, elasticity normal and turgor normal Neuro General: patient oriented x3 Psych Appearance: grossly normal Mental Status: mental status grossly normal Speech and movement: Normal speech and movement present Affect: normal affect Assessment & Plan Assessment & Plan (1) Urinary tract infection: Code(s): N39.0 - Urinary tract infection, site not specified Qualifiers: Urinary tract infection type: acute cystitis Hematuria presence: with hematuria Qualified Code(s): N30.01 - Acute cystitis with hematuria Plan: In office urine dip suspicious for likely urinary tract infection. Antibiotics sent to requested pharmacy. That there is to follow up with her PCP for repeat urinalysis on a routine basis. Advised increased hydration. Follow up as needed with worsening or failure to resolve. Medications: New nitrofurantoin monohyd/m-cryst 100 mg must administer with a meal/food 100 mg PO Q12H 5 days 10 caps 0RF Discontinued cephalexin Discontinued Reason: No Longer Medically Relevant 500 mg PO BID 7 days 14 tabs 0RF R59.1 - Generalized enlarged lymph nodes Coding Level of Care Code Est Pt Level 3 (97988) Diagnoses Acute cystitis with hematuria N30.01 Urinary tract infection type: acute cystitis Hematuria presence: with hematuria
[2024-04-18 10:44] VITALS: BP 108/70; PULSE 77; O2SAT 100; BMI 30.9
== END 2024-04-18 11:28 | disposition home or self-care (01) ==
PROVIDERS: PCP Internal Medicine; Visit Provider Registered Nurse
DX: Z13.9 Encounter for screening, unspecified (principal); N30.01 Acute cystitis with hematuria

== ENCOUNTER → 2024-04-18 09:07 | Outpatient (BNVA) | payer OTHER, SELFPAY | PROVIDERS: PCP Internal Medicine | DX: N30.01 Acute cystitis with hematuria (principal) | CPT/HCPCS: 81003; 99212 ==

== ENCOUNTER 2024-05-01 12:57 | Outpatient (AMB) | payer MEDICAID, SELFPAY ==
--- NOTE | 2024-05-01 13:55 | MHC.OFFWIV ---
Intake Vital Signs 05/01/24 13:56 Height 5 ft 7 in Weight 197 lb BMI 30.9 BP 110/80 Blood Pressure Location Lt brachial Position Sitting Pulse 70 Pulse Source Pulse Oximeter Pulse Oximetry (%) 98 Oxygen Delivery Method Room Air Intake Visit Reasons: EP severe itching on hands/feet Intake Note: Patient here for itching on hands and feet thats been present for about 1 week and she also has complaints of chest pain/pressure. Patient Tobacco Use Status: Never used Tobacco Allergies No Known Allergies Allergy (Verified 05/01/24 13:57) Do you need a note to return to daycare/school/sports/work: No HPI HPI Comments History of Present Illness Details Patient is a 33-year-old female with 2 complaints, her 1st issue is that she is complaining of 1 week of itchy hands and feet and chest pressure. Regarding the itchy hands and feet, she denies any rash on her hands or her feet or dry skin on her hands or her feet. She denies any new soaps, lotions, laundry detergents, fabric softeners, medications or foods. She has not tried any medication to make it go away. She states she does not know the last time she had labs with her primary care doctor but she is pretty sure they were all normal. She denies any chance of because she states her has had a vasectomy. She denies being on any control. Her 2nd complaint is chest pressure. She states it happened twice yesterday. It came on for about an hour and she did nothing and it resolved on its own. Then it happened again a little while later for about 15 minutes and then again resolved on its own. She states if she pushes on her chest she can not reproduce the pain. She denies any shortness of breath, sweating, nausea or vomiting, radiation of the pain to her back, neck pain, shoulder pain, jaw pain or arm pain. [facility] Medical History (Updated 05/01/24 @ 14:13 by Ariadna Rodrigez PA-C) Severe recurrent major depression Abdominal hernia Ventricular premature beats Surgical History History of History of ovarian cystectomy Family History Mother Hx of primary hypertension Hx of diabetes mellitus History of arthritis History of hypothyroidism Mental health disorder Father No problems noted. Maternal Aunt Mental health disorder Maternal Grandfather History of high cholesterol Hx of primary hypertension Maternal Grandmother History of high cholesterol Hx of primary hypertension History of arthritis History of throat cancer History of head and neck cancer Paternal Grandfather No problems noted. Paternal Grandmother No problems noted. Brother No problems noted. Social History Household Members: Spouse, Family and Children Both parents involved: Yes Caregiver staying overnight: No Housing: Apartment Alcohol intake: current Alcohol intake frequency: holidays/special occasions only Alcohol type: hard liquor Patient Tobacco Use Status: Never used Tobacco e-Cigarette/Vaping Use: Never Used Second Hand Smoke Exposure: No service: No Current occupational status: unemployed Current occupational exposures/hazards: No Gender identity: Female Cognitive needs: No Hearing needs: No Vision needs: No Female Reproductive History Menstrual Age of Menarche: 10 Review of Systems Const All systems reviewed & are unremarkable except as noted in HPI and below Physical Exam Vital Signs: Last Vital Signs Pulse 70 05/01/24 13:56 BP 110/80 05/01/24 13:56 Pulse Ox 98 05/01/24 13:56 Oxygen Delivery Method Room Air 05/01/24 13:56 BMI result Body Mass Index 30.9 Const General: cooperative, healthy appearing, comfortable, no acute distress and well developed Orientation/consciousness: patient oriented x3 Limitations: no limitations HEENT Head: Yes normal to inspection Ears: hearing grossly normal bilaterally General nose exam: Normal external nose present Face and sinus: Yes normal facial exam Eyes General: appearance normal, both eyes and all related structures Neck Neck: Yes normal visual inspection and Yes full ROM Resp Effort & Inspection: normal respiratory effort and able to speak in complete sentences Skin General skin exam: no rashes or lesions noted Neuro General: patient oriented x3 Extrem General: Yes normal to inspection Assessment & Plan Assessment & Plan (1) Pruritus of both hands: Code(s): L29.9 - Pruritus, unspecified Plan: The skin on both hands as completely unremarkable; a look at her last labs from November, her kidneys and liver are completely normal. I will send hydroxyzine to her pharmacy for symptomatic relief. She denies any chance of . I recommended if her itchiness continues, she should follow up with her PCP for further workup. (2) Sensation of chest pressure: Code(s): R07.89 - Other chest pain Plan: Vital signs are stable, patient is very well-appearing. She does not have the chest pain right now. We discussed different etiologies of chest pain, most commonly for a young healthy female being anxiety or costochondritis. Recommended she go to the ER if she has any red flag symptoms and I gave her a list of those symptoms. She understands and agrees with the plan. Medications: New hydroxyzine HCl 10 mg PO Q6-8H PRN 14 tabs 0RF itching Coding Level of Care Code Est Pt Level 3 (88279) Diagnoses Pruritus of both hands L29.9 Sensation of chest pressure R07.89
[2024-05-01 13:56] VITALS: BP 110/80; PULSE 70; O2SAT 98; BMI 30.9
== END 2024-05-01 14:59 | disposition home or self-care (01) ==
PROVIDERS: PCP Internal Medicine; Visit Provider Physician Assistant
DX: L29.9 Pruritus, unspecified (principal); R07.89 Other chest pain

== ENCOUNTER → 2024-05-01 12:57 | Outpatient (BNVA) | payer MEDICAID, SELFPAY | PROVIDERS: PCP Internal Medicine; Visit Provider Physician Assistant | DX: L29.9 Pruritus, unspecified (principal); R07.89 Other chest pain | CPT/HCPCS: 99212 ==

== ENCOUNTER 2025-01-28 16:25 | Outpatient (AMB) | payer OTHER, SELFPAY ==
--- OUTSIDE RECORDS SUMMARY | 2025-01-28 16:27 | XMS_ITS | Clinical Summary ---
Author Organization [facility] Address [address] [place] [phone] Phone Care Team Providers Care Supervisor Wound Name Role Phone Greg Pena Primary Care Provider [phone] Immunizations Immunization Administration Dates Next Due DTP 06/22/1999, 9,02/20/1999,1992,04/22/1990 Hep B, ped/adol 03/26/2004,05/28/2002,04/27/2002 IPV 04/22/1999, 9,04/22/1993,1989 MMR 03/21/2003,04/22/1990 Td (adult) (MBL), 2 Lf tetan us toxoid, PF, adsorbed 03/26/2004 Social History Tobacco Use Types Packs/Day Years Used Date Smoking Tobacco: Never Assessed Comments Unknown Sex and Gender Information Value Date Recorded Sex Assigned at Not on file Legal Sex Female 4:09 PM EDT Gender Identity Not on file Sexual Orientation Not on file Plan of Treatment Health Maintenance Due Date Last Done Comments Varicella Vaccines (1 of 2 - 13+ 2-dose series) 04/18/2003 DTaP,Tdap,and Td Vaccines (7 - Tdap) 03/26/2014 03/26/2004, 06/22/1999, 04/22/1999, Additional history exists COVID-19 Vaccine ( season) 2024 Influenza Vaccines (#1) 2025 IPV Vaccines Completed 04/22/1999, 07/07/1998, 04/22/1993, Additional history exists MMR Vaccines Completed 03/21/2003, 04/22/1990 Hepatitis B Vaccines Completed 03/26/2004, 05/28/2002, 04/27/2002 HIB Vaccines Aged Out No longer eligi ble based on patient's age to complete this topic HPV Vaccines Aged Out No longer eligi ble based on patient's age to complete this topic Hepatitis A Vaccines Aged Out No long er eligible based on patient's age to complete this topic Men B Vaccine Aged Out No longer elig ible based on patient's age to complete this topic Meningococcal Vaccine Aged Out No florence thaddeus eligible based on patient's age to complete this topic Pneumococcal Vaccine Aged Out No long er eligible based on patient's age to complete this topic Care Teams Supervisor Wound Relationship Specialty Start Date End Date Greg Pena [address] [place] [id number] PCP - General 03/03/17
--- OUTSIDE RECORDS SUMMARY | 2025-01-28 16:27 | XMS_ITS | Clinical Summary ---
Author Organization [facility] Address [id number] [place] [id number] Care Team Providers Care Merchandise For Resale Purchasing Agent Name Role Phone Lawanda Ireland MD Primary Care Provider [phone] Surgical History Surgery Date Site/Laterality Comments OTHER SURGICAL HISTORY PROCEDURE: HISTORY OTHER; COMMENT: Laparoscopic bilateral ovarian cystectomy Medical History Medical History Date Comments Anemia DX:Anemia Bilateral ovarian cysts DX:Bilat eral ovarian cysts Social History Tobacco Use Types Packs/Day Years Used Date Smoking Tobacco: Never Assessed Comments Unknown Sex and Gender Information Value Date Recorded Sex Assigned at Not on file Legal Sex Female 11:14 AM EST Gender Identity Not on file Sexual Orientation Not on file Obstetrics History Plan of Treatment Health Maintenance Due Date Last Done Comments DTaP,Tdap,and Td Vaccines (1 - Tdap) 10/05/2007 Hepatitis B Vaccines (1 of 3 - 19+ 3-dose series) 10/05/2007 Cervical Cancer Screening: P ap Smear 2009 COVID-19 Vaccine (2023-2 5 season) 2024 Influenza Vaccine (#1) 2025 HIB Vaccines Aged Out No longer eligi ble based on patient's age to complete this topic HPV Vaccines Aged Out No longer eligi ble based on patient's age to complete this topic Hepatitis A Vaccines Aged Out No long er eligible based on patient's age to complete this topic IPV Vaccines Aged Out No longer eligi ble based on patient's age to complete this topic MMR Vaccines Aged Out No longer eligi ble based on patient's age to complete this topic Meningococcal ACWY Vaccine Aged Out N o longer eligible based on patient's age to complete this topic Meningococcal B Vaccine Aged Out No l onger eligible based on patient's age to complete this topic Pneumococcal Vaccine: Pediat rics (0 to 5 Years) and At-Risk Patients (6 to 49 Years) Aged Out No longer eligible b ased on patient's age to complete this topic RSV Immunization Patients Un hailey 20 months Aged Out No longer eligible b ased on patient's age to complete this topic Varicella Vaccines Aged Out No longer eligible based on patient's age to complete this topic Care Teams Merchandise For Resale Purchasing Agent Relationship Specialty Start Date End Date Lawanda Ireland MD [address] [place] [address] [address] [facility] [place] [id number] PCP - General Internal Medicine 10/22/20
--- NOTE | 2025-01-28 16:29 | A.OFFPC_ITS ---
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: No Accompanied by: Self / Same As Patient Allergies No Known Allergies Allergy (Verified 01/28/25 17:08) Medication List - Last Reconciled 01/28/25 by Cecilia Henao MD venlafaxine ER 37.5 mg PO BEDTIME 90 days Tobacco use date assessed: 01/28/25 Dental Screening Dental Screen Date: 01/28/25 Did you have a dental visit in the last 12 months?: Yes Did you have a dental problem in the last 6 months where you did not have access to dental care?: No Was dental information given to patient?: Patient has dentist HPI HPI Comments History of Present Illness Details The patient is a 34-year-old female presenting for a physical exam and management of mild major depression. She has a history of mild major depression, which has shown improvement with a current PHQ-9 score of 8. The patient reports experiencing memory loss that began a few months ago, characterized by forgetfulness. She denies any confu devika, neurological deficits, or slurred speech. The patient is due for a Tdap vaccine, as her last vaccination was in 2011. REPLACED BY [facility] Medical History (Updated 01/28/25 @ 17:17 by Cecilia Henao MD) Severe recurrent major depression Abdominal hernia Ventricular premature beats Surgical History History of History of ovarian cystectomy Family History Mother Hx of primary hypertension Hx of diabetes mellitus History of arthritis History of hypothyroidism Mental health disorder Father No problems noted. Maternal Aunt Mental health disorder Maternal Grandfather History of high cholesterol Hx of primary hypertension Maternal Grandmother History of high cholesterol Hx of primary hypertension History of arthritis History of throat cancer History of head and neck cancer Paternal Grandfather No problems noted. Paternal Grandmother No problems noted. Brother No problems noted. Social History Household Members: Spouse, Family and Children Both parents involved: Yes Caregiver staying overnight: No Housing: Apartment Alcohol intake: current Alcohol intake frequency: holidays/special occasions only Alcohol type: hard liquor Patient Tobacco Use Status: Never used Tobacco e-Cigarette/Vaping Use: Never Used Second Hand Smoke Exposure: No service: No Current occupational status: employed Current occupational exposures/hazards: No Gender identity: Female Cognitive needs: No Hearing needs: No Vision needs: No Female Reproductive History Menstrual Age of Menarche: 10 Questionnaire PHQ-9 Over the last 2 weeks, how often have you been bothered by any of the following problems? 1. Little interest or pleasure in doing things: several days 2. Feeling down, depressed, or hopeless: several days 3. Trouble falling or staying asleep, or sleeping too much: several days 4. Feeling tired or having little energy: several days 5. Poor appetite or overeating: more than half the days 6. Feeling bad about yourself - or that you are a failure or have let yourself or your family down: not at all 7. Trouble concentrating on things, such as reading the newspaper or watching television: several days 8. Moving or speaking so slowly that other people could have noticed. Or the opposite - being so fidgety or restless that you have been moving around a lot more than usual: several days 9. Thoughts that you would be better off or of hurting yourself in some way: not at all Total score: 8 Depression Screening Interpretation: Positive Depression Screening Follow-up: Existing condition, In treatment and Follow-up Visit Requested Depression Screening Done: Yes 08673 - PHQ-9 Billing: Yes Source: Developed by Drs. Greg Marquis, Aure Finley, Jose Parikh and colleagues, with an educational carmita from [employer]. Thrive Questionnaire Date Thrive assessed: 01/28/25 I am a: Patient What is your living situation today?: I have a steady place to live Within the past 12 months, did the food you bought not last and you didn't have the money to get more?: Never true Within the past 12 months, did you worry whether your food would run out before you got money to buy more?: Never true Do you have trouble paying for medicines?: No Do you have trouble getting transportation to medical appointments?: No Do you have trouble paying your heating and electricity bill?: No Do you have trouble taking care of your child, family member or friend?: No Do you have trouble with day-to-day activities such as bathing, preparing meals, shopping, managing finances, etc.?: No Are you currently unemployed and looking for a job?: No Are you interested in more education?: No Please select the resources that you would like help with: None Currently or been in a relationship where the following occur: I choose not to answer THRIVE Score: 0 AUDIT C Alcohol Use Questionnaire (AUDIT-C) 1. How often do you have a drink containing alcohol?: Monthly or less 2. How many drinks containing alcohol do you have on a typical day when you are drinking?: 1 or 2 3. How often do you have six or more drinks on one occasion?: Never Total Score: 1 Score Reviewed/Action Taken: No DEVENDRA-7 AMB Questionnaire DEVENDRA-7 Date DEVENDRA - 7 assessed: 01/28/25 Feeling nervous, anxious, or on edge: 1 = Several days Not being able to stop or control worryin = Several days Worrying too much about different things: 1 = Several days Trouble relaxin = Several days Being so restless that it is hard to sit still: 1 = Several days Becoming easily annoyed or irritable: 1 = Several days Feeling afraid as if something awful might happen: 1 = Several days Total DEVENDRA-7 score (0-4 normal; 5-9 mild; 10-14 moderate; 15-21 severe): 7 Source: Developed by Drs. Greg Marquis, Aure Finley, Jose Parikh and colleagues, with an educational carmita from [employer]. DEVENDRA-7 Assessment Billing DEVENDRA-7 Assessment Tool: DEVENDRA-7 Assessment 17686 Review of Systems Const All systems reviewed & are unremarkable except as noted in HPI and below Card Denies chest pain at rest, Denies chest pain with activity, Denies edema, Denies irregular heart rhythm, Denies claudication, Denies dyspnea, Denies dyspnea on exertion, Denies orthopnea, Denies paroxysmal nocturnal dyspnea and Denies slow heart rate Resp Denies cough, Denies dyspnea and Denies dyspnea on exertion GI Denies abdominal pain, Denies change in bowel habits, Denies excessive flatus, Denies nausea and Denies vomiting Denies urinary incontinence, Denies urinary hesitancy and Denies urinary urgency Musc Denies abnormal gait, Denies atrophy, Denies deformity and Denies limited range of motion Skin/Breast Denies bleeding lesions, Denies changing lesions and Denies rash Neuro Denies abnormal gait, Denies behavioral changes, Denies confusion, Denies lack of coordination and Reports memory loss Psych Denies behavioral changes, Denies confusion and Reports memory loss Endo Denies cold intolerance Physical exam (Primary Care) Vital Signs: Last Vital Signs BP 110/78 01/28/25 16:32 BMI result Body Mass Index 29.3 Tobacco/Smoking Status: Tobacco use Status Tobacco use date assessed 01/28/25 01/28/25 16:37 Patient Tobacco Use Status Never used Tobacco 01/28/25 16:37 Tobacco use type 07/05/23 07:14 e-Cigarette/Vaping Use Never Used 01/28/25 16:37 PHQ-9: PHQ-9 Score PHQ-9: Total score 8 01/28/25 17:11 Depression Screening Interpretation: Positive Depression Screening Follow-up: Existing condition, In treatment and Follow-up Visit Requested Thrive Assessment: Date of Thrive Assessment Date Thrive assessed 01/28/25 01/28/25 16:37 Currently or been in a relationship where the following occur: I choose not to answer Const General: No confusion Orientation/consciousness: patient oriented x3 and No confusion HENMT Head: Yes normal to inspection, Yes normocephalic and Yes atraumatic Ears: external ears normal Eyes General: appearance normal, both eyes and all related structures Eyelids: Yes eyelids normal Conjunctivae: conjunctivae normal Neck Neck: Yes normal visual inspection and Yes supple Resp Effort & Inspection: normal respiratory effort Auscultation: clear to auscultation bilaterally Cardio Jugular venous distension: no JVD Rate: regular rate Rhythm: regular rhythm Heart sounds: S1 normal heart sound present and S2 normal heart sound present GI Inspection: Yes normal to inspection Palpation (GI): Soft to palpation and nontender Auscultation: normal bowel sounds Skin General skin exam: no rashes or lesions noted Neuro General: patient oriented x3, no focal motor deficits and No confusion Extrem General: Yes full ROM Psych Appearance: grossly normal Coding Level of Care Code Est Pt Level 3 (14827) Est Pt Prev Care 18-39y(14928) Diagnoses Physical exam Z00.00 Mild major depression F32.0 Memory loss R41.3 Additional Codes DEVENDRA-7 Assessment Billing - DEVENDRA-7 Assessment Tool: DEVENDRA-7 Assessment 90205 ([id number]) PHQ-9 - 03877 - PHQ-9 Billing: Yes ([id number]) Time Spent (min) 34 Assessment & Plan Assessment & Plan (1) Physical exam: Code(s): Z00.00 - Encounter for general adult medical examination without abnormal findings Category: Medical (2) Mild major depression: Code(s): F32.0 - Major depressive disorder, single episode, mild Category: Medical (3) Memory loss: Code(s): R41.3 - Other amnesia Category: Medical Plan The patient will be referred to neurology for further evaluation of her memory loss. Blood work will be conducted to investigate potential causes of her memory issues. A Tdap vaccine is planned to be administered as part of her preventative care. Patient was informed and verbally consented to the use of an ambient scribe for clinic note documentation during this visit. Orders: Orders Lipid Panel Today E78.5 - Hyperlipidemia, unspecified Complete Blood Count Auto Diff Today R41.3 - Other amnesia Vitamin B12 and Folate Today E53.8 - Deficiency of other specified B group vitamins, R41.3 - Other amnesia Comprehensive [place]. Panel Fast Today R07.9 - Chest pain, unspecified Thyroid Stimulating Hormone Today R41.3 - Other amnesia Referrals Neurology Referral R41.3 - Other amnesia Medications: Refilled venlafaxine ER 37.5 mg PO BEDTIME 90 caps 1RF 90 days
[2025-01-28 16:32] VITALS: BP 110/78; BMI 29.3
== END 2025-01-28 17:31 | disposition home or self-care (01) ==
PROVIDERS: PCP Internal Medicine; Visit Provider Internal Medicine
DX: Z00.00 Encounter for general adult medical examination without abnormal findings (principal); R41.3 Other amnesia; F32.0 Major depressive disorder, single episode, mild

== ENCOUNTER → 2025-01-28 16:25 | Outpatient (BNVA) | payer OTHER, SELFPAY | PROVIDERS: PCP Internal Medicine; Visit Provider Internal Medicine | DX: Z00.00 Encounter for general adult medical examination without abnormal findings (principal); F32.A Depression, unspecified; F32.0 Major depressive disorder, single episode, mild; R41.3 Other amnesia; E78.5 Hyperlipidemia, unspecified; E53.8 Deficiency of other specified B group vitamins; R07.9 Chest pain, unspecified | CPT/HCPCS: 96127; 99212; 99395 ==

== ENCOUNTER 2025-02-22 12:39 | Outpatient (REF) | payer SELFPAY | END 2025-02-22 12:40 | disposition home or self-care (01) | LOC: HO.LAB 12:39 | PROVIDERS: PCP Internal Medicine; Visit Provider Physician Assistant Medical | DX: R35.0 Frequency of micturition (principal); N32.89 Other specified disorders of bladder; Z13.89 Encounter for screening for other disorder | CPT/HCPCS: 81003; 87086; 87088; 87186; 99212 ==

== ENCOUNTER 2025-02-22 12:39 | Outpatient (AMB) | payer OTHER, SELFPAY ==
--- OUTSIDE RECORDS SUMMARY | 2025-02-22 12:41 | XMS_ITS | Clinical Summary ---
[facility] Address [address] [place] [address] Care Team Providers Care Information Director Name Role Phone Lawanda Ireland MD Primary Care Provider [phone] Surgical History Surgery Date Site/Laterality Comments OTHER [...] 2009 COVID-19 Vaccine (2023-2 5 season) 2024 Depression Screening 07/24/2024 Influenza Vaccine (#1) 2025 HIB Vaccines Aged [...] age to complete this topic Care Teams Information Director Relationship Specialty Start Date End Date Lawanda Ireland MD [address] [place] [address] [address] [facility] [place] [address] PCP - General Internal Medicine 10/22/20
[2025-02-22 12:47] VITALS: BP 90/60; PULSE 98; RESP 16; TEMP 36.8; O2SAT 99; BMI 29.0
--- NOTE | 2025-02-22 12:47 | AM.OFFWIN_ITS ---
Intake Vital Signs 02/22/25 12:47 Height 5 ft 7 in Weight 185 lb BMI 29.0 BP 90/60 Blood Pressure Location Rt brachial Position Sitting Respiration 16 Pulse 98 Pulse Source Pulse Oximeter Temp 98.2 F Temp Source Oral Pulse Oximetry (%) 99 Oxygen Delivery Method Room Air Intake Visit Reasons: EP UTI? Intake Note: Pt is here today c/o frequent upon urination and foul odor x1 day Patient Tobacco Use Status: Never used Tobacco Allergies No Known Allergies Allergy (Verified 02/22/25 12:47) HPI HPI Comments History of Present Illness Details This is a 34-year-old female who presented to the walk-in clinic complaining of UTI symptoms. She reports increased urinary frequency that began yesterday; however, she denies any decreased urine volume and states that she is urinating a good amount. She also reports a very mild foul odor to her urine but denies any cloudy urine. She denies any dysuria or hematuria. She denies any flank or back pain. She denies any abdominal pain or nausea/vomiting. She denies any vaginal discharge or vaginal bleeding. FOR[facility]LY [facility] Medical History Severe recurrent major depression Abdominal hernia Ventricular premature beats Surgical History History of History of ovarian cystectomy Family History Mother Hx of primary hypertension Hx of diabetes mellitus History of arthritis History of hypothyroidism Mental health disorder Father No problems noted. Maternal Aunt Mental health disorder Maternal Grandfather History of high cholesterol Hx of primary hypertension Maternal Grandmother History of high cholesterol Hx of primary hypertension History of arthritis History of throat cancer History of head and neck cancer Paternal Grandfather No problems noted. Paternal Grandmother No problems noted. Brother No problems noted. Social History Household Members: Spouse, Family and Children Both parents involved: Yes Caregiver staying overnight: No Housing: Apartment Alcohol intake: current Alcohol intake frequency: holidays/special occasions only Alcohol type: hard liquor Patient Tobacco Use Status: Never used Tobacco e-Cigarette/Vaping Use: Never Used Second Hand Smoke Exposure: No service: No Current occupational status: employed Current occupational exposures/hazards: No Gender identity: Female Cognitive needs: No Hearing needs: No Vision needs: No Female Reproductive History Menstrual Age of Menarche: 10 Review of Systems Const All systems reviewed & are unremarkable except as noted in HPI and below Reports no additional complaints Eyes Reports no additional complaints ENT Reports no additional complaints Card Reports no additional complaints Resp Reports no additional complaints GI Reports no additional complaints Reports no additional complaints Musc Reports no additional complaints Skin/Breast Reports system reviewed and no additional complaints, except as documented Neuro Reports no additional complaints Psych Reports no additional complaints Endo Reports no additional complaints Brian/Lymph Reports no additional complaints Aller/Immun Reports no additional complaints Physical Exam Vital Signs: Last Vital Signs Temp 98.2 F 02/22/25 12:47 Pulse 98 02/22/25 12:47 Resp 16 02/22/25 12:47 BP 90/60 02/22/25 12:47 Pulse Ox 99 02/22/25 12:47 Oxygen Delivery Method Room Air 02/22/25 12:47 BMI result Body Mass Index 29.0 Const Other: Vital signs reviewed. Constitutional: Non-toxic appearing. No acute distress. Well-developed and well-nourished. HEENT: Normocephalic and atraumatic. EOMI. Skin: Warm and dry. No rashes or lesions noted. Neck: Full and painless range of motion. No cervical lymphadenopathy. Cardio: Regular rate and rhythm. No murmurs, gallops, or rubs. No lower extremity edema. No JVD. Pulmonary: No respiratory distress. No accessory muscle usage. Clear to auscultation bilaterally without wheezing, crackles, or rhonchi. Gastrointestinal: Soft, nontender, and nondistended in all 4 quadrants. Normoactive bowel sounds in all 4 quadrants. Genitourinary: No CVA tenderness. Musculoskeletal: Normal range of motion in joints throughout the body. No deformity or other signs of injury. Neuro: Alert and oriented x4. Cranial nerves 2-12 grossly intact. No focal deficits appreciated. Psych: Normal mood and affect. Results AMB Urinalysis, Automated UA Leukoctes 0 Joesph/uL Last Edit by Venita Robertson CMA on 02/22/25 12:53 UA Nitrite Negative Last Edit by Venita Robertson CMA on 02/22/25 12:53 UA Urobilinogen 0.2 mg/dL Last Edit by Venita Robertson, SEEMA on 02/22/25 12:53 UA Protein 0 mg/dL Last Edit by Venita Robertson, SEEMA on 02/22/25 12:53 UA pH 7.0 Last Edit by Venita Robertson, SEEMA on 02/22/25 12:53 UA Blood 0 Jony/uL Last Edit by Venita Robertson, SEEMA on 02/22/25 12:53 UA Specific [place] 1.015 Last Edit by Venita Robertson, BUILDING INSULATION SUPERVISOR on 02/22/25 12:53 UA Ketone Negative Last Edit by Venita Robertson, SEEMA on 02/22/25 12:53 UA Bilirubin 0 mg/dL Last Edit by Venita Robertson, SEEMA on 02/22/25 12:53 UA Glucose 0 mg/dL Last Edit by Venita Robertson, SEEMA on 02/22/25 12:53 Results Reviewed Results Reviewed: Laboratory Last Values Urine pH (Auto) 7.0 02/22/25 12:47 Specific [place] (Auto) 1.015 02/22/25 12:47 Urine Protein (Auto) 0 mg/dL 02/22/25 12:47 Glucose (UA)(Auto) 0 mg/dL 02/22/25 12:47 Urine Ketones (Auto) Negative 02/22/25 12:47 Urine Blood (Auto) 0 Jony/uL 02/22/25 12:47 Urine Nitrite (Auto) Negative 02/22/25 12:47 Urine Bilirubin (Auto) 0 mg/dL 02/22/25 12:47 Urine Urobilinogen (Auto) 0.2 mg/dL 02/22/25 12:47 Leukocyte Esterase (Auto) 0 Joesph/uL 02/22/25 12:47 Assessment & Plan Assessment & Plan (1) Increased urinary frequency: Code(s): R35.0 - Frequency of micturition Plan 34-year-old female who presented to the walk-in clinic complaining of UTI symptoms. A POCT urinalysis was negative for nitrites, leukocyte esterase, and blood so urinary tract infection is unlikely at this time; however, a urine culture was sent given patient's symptoms. Patient denies abnormal vaginal discharge so BV, yeast infection, or STD less likely. Patient was given PO phenazopyridine 200 mg 3 times daily as needed for bladder spasm for 6 doses for symptomatic management and recommended increased hydration. She was advised to follow-up here or proceed directly to the emergency room if she were to develop worsening/persistent symptoms, hematuria, flank/back pain, fever/chills, nausea/vomiting. Patient verbalized understanding and she is in agreement with the plan. Orders: Orders AMB Urinalysis Automated Today Z13.9 - Encounter for screening, unspecified Urine Culture Today R35.0 - Frequency of micturition Medications: New phenazopyridine 200 mg PO TID PRN 6 tabs 0RF pain 6 doses Coding Level of Care Code Est Pt Level 3 (41654) Diagnoses Increased urinary frequency R35.0
== END 2025-02-22 13:37 | disposition home or self-care (01) ==
PROVIDERS: PCP Internal Medicine; Visit Provider Physician Assistant Medical
DX: Z13.9 Encounter for screening, unspecified (principal); R35.0 Frequency of micturition